=== PATIENT | female | born 1950 | race Caucasian/White ===

== ENCOUNTER 2021-12-19 23:16 | Inpatient (IN) ==
[2021-12-19] MEDS ORDERED: IOPAMIDOL 100 ML BOTTLE IV ONE (23:17)
--- NOTE | 2021-12-19 23:37 | Emergency Department Note ---
HPI General Chief complaint: Urogenital-Female Stated complaint: vaginal discharge Time Seen by Provider: 12/19/21 23:31 Source: patient Mode of arrival: ambulatory Limitations: no limitations History of Present Illness HPI Narrative: Narrative: Patient is a 71-year-old female with a past medical history significant for diverticulitis who presents to the emergency department due to lower abdominal pressure and vaginal discharge. Patient states that she had lower abdominal pressure for a brief period of time a couple of times tonight prior to having vaginal discharge that she states looks a little bit like stool. She states that she was told by the physician when she was admitted earlier this year that she should come to the emergency department if she noticed vaginal discharge that look like stool. She denies any other symptoms at this time. Related Data Home Medications Medication Instructions Recorded Confirmed aspirin 325 mg tablet 325 mg PO QDAY 04/30/17 12/07/21 ferrous sulfate 325 mg (65 mg 325 mg PO DAILY 12/20/21 12/20/21 iron) capsule,extended release Previous Rx's Medication Instructions Recorded loratadine 10 mg tablet 10 mg PO QDAY PRN allergy symptoms 12/11/16 #90 tabs magnesium oxide 400 mg (241.3 mg 400 mg PO QDAY #90 tabs 12/11/16 magnesium) tablet metoprolol tartrate 25 mg tablet 25 mg PO BID #180 tabs 06/02/20 Accu-Chek Kylie Plus test strp #100 ea 01/16/21 (blood sugar diagnostic) pioglitazone 30 mg tablet 30 mg PO QDAY #90 tabs 02/23/21 levothyroxine 50 mcg tablet 50 mcg PO QDAY #90 tabs 03/16/21 metformin 500 mg tablet 500 mg PO BID #180 tabs 06/05/21 atorvastatin 40 mg tablet 40 mg PO QDAY #90 tabs 08/09/21 docusate sodium 100 mg capsule 100 mg PO QDAY #14 caps 11/10/21 tramadol 50 mg tablet 50 mg PO BID PRN pain (scale score 11/10/21 7-10) #30 tabs diltiazem HCl 180 mg 180 mg PO QDAY #90 caps 11/14/21 capsule,extended release 24 hr (Cartia XT) celecoxib 200 mg capsule 200 mg PO QDAY #90 caps 11/22/21 omeprazole 20 mg capsule,delayed 20 mg PO BID 8 weeks #112 caps 12/07/21 release Allergies Allergy/AdvReac Type Severity Reaction Status Date / Time clopidogrel [From Plavix] Allergy Unknown Rash Verified 12/07/21 12:51 naproxen [From Aleve] Allergy Unknown Rash Verified 12/07/21 12:51 Neomycin Allergy Unknown Rash Verified 12/07/21 12:51 polymyxin B Allergy Unknown Unknown Verified 12/07/21 12:51 [From Neosporin ([id number])] lisinopril AdvReac Mild cough Verified 12/07/21 12:51 zoster vaccine live AdvReac Unknown Cannot Verified 12/07/21 12:51 have due to allergy to Neosporin Review of Systems ROS ROS Narrative: Narrative: Constitutional: Denies fever or weakness Eyes: Denies eye pain or vision change ENT ED: Denies throat pain, hearing loss or rhinorrhea Cardiovascular: Denies chest pain or edema Respiratory: Denies shortness of breath or cough Gastrointestinal: Reports abdominal pain; Denies nausea, vomiting, diarrhea, constipation, hematochezia or melena Genitourinary: Reports discharge; Denies dysuria or hematuria Musculoskeletal: Denies back pain or myalgia Integumentary: Denies rash or lesions Neurological: Denies headache, weakness, numbness, confusion, abnormal gait or dizziness Endocrine: Denies fatigue or polyuria Hematological/Lymphatic: Denies easy bleeding or easy bruising PFSH Narrative Patient History Narrative: Narrative: Medical/Surgical/Family History All Active Problems (Updated 12/20/21 @ 02:55 by Fredy Toro MD) Diverticulitis (Acute) Colovaginal fistula (Acute) Appendicitis (Acute) Abscess of groin, left (Acute) Diverticulitis large intestine w/o perforation or abscess w/o bleeding (Acute) Other low back pain (Chronic) Chronic pain (Chronic) Radiculopathy, lumbosacral region (Acute) Neurogenic claudication (Chronic) Lumbar radiculopathy (Chronic) Absence of cervix, acquired (Chronic) 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 non-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 anti-inflammatories (nsaid) (Chronic) Intervertebral disc disorders with radiculopathy, lumbar region (Chronic) Excessive sweating (Chronic) Dry skin (Chronic) Joint pain (Chronic) Arthritis (Chronic) Heartburn (Chronic) Hay fever (Chronic) Numbness of lower extremity (Chronic) Sharp pain (Chronic) Dull pain (Chronic) Aching pain (Chronic) Spinal stenosis (Chronic) Sciatica of left side associated with disorder of lumbar spine (Chronic) Lumbar degenerative disc disease (Chronic) Morbid obesity with BMI of 40.0-44.9, adult (Chronic) Cataracts, bilateral (Chronic) URI (upper respiratory infection) (Chronic) Trigger finger (Chronic) Abscess (Chronic) Medicare annual wellness visit, subsequent (Chronic) Diabetes mellitus type 2 in obese (Chronic) PAF (paroxysmal atrial fibrillation) (Chronic) Change in bowel movement (Chronic) Abdominal pain (Chronic) 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) Metabolic Syndrome X (Chronic) Peripheral Vascular Disease (Chronic) Vaginal polyp (Chronic) Trochanteric bursitis of both hips (Chronic) Closed fracture of toe (Chronic) Sinusitis, acute (Chronic) Premature ventricular contractions (Chronic) Premature atrial contractions (Chronic) Paroxysmal supraventricular tachycardia (Chronic) Palpitations (Chronic) Osteoarthritis (Chronic) Obesity (Chronic) Dysmetabolic syndrome X (Chronic) Low back pain (Chronic) Skin lesion (Chronic) Injury of meniscus of right knee (Chronic) Hypothyroidism (Chronic) Hypertension, essential (Chronic) Hyperlipidemia (Chronic) Hormone replacement therapy (HRT) (Chronic) Shingles (Chronic) Hemorrhoids, internal (Chronic) Gastroesophageal reflux (Chronic) Gastroenteritis, non-infectious (Chronic) Ganglion of joint (Chronic) Dyslipidemia (Chronic) Cystitis (Chronic) Chest pain (Chronic) Cellulitis (Chronic) Carotid bruit (Chronic) Fibromuscular dysplasia (Chronic) Vulvovaginal candidiasis (Chronic) CAD (coronary artery disease) (Chronic) Bronchitis, acute (Chronic) Angina of effort (Chronic) Anemia (Chronic) Atrial fibrillation (Chronic) Medical History Abdominal pain Mild nonlocalizing left-sided abdominal pain. No mass. No rebound. Abscess Absence of cervix, acquired Aching pain Anemia Patient stopped taking iron supplement 6 weeks ago due to constipation, and iron levels remained stable since then Angina of effort Arthritis Atrial fibrillation 04/2011; back to sinus with occasional premature beats (06/2011) Recurrent 02/12/14 - converted Bronchitis, acute CAD (coronary artery disease) (03/08/14-[place]) Carotid bruit Bilateral d/t fibromuscular dysplasia Cataracts, bilateral Cellulitis 09/2011; 07/2010; Right first toe; same Change in bowel movement Resolving Chest pain Chronic pain Closed fracture of toe Cystitis Diabetes mellitus type 2 in obese Diverticulitis of colon 2008 Dry skin Dull pain Dyslipidemia Dysmetabolic syndrome X Encounter for removal of sutures Excessive sweating Fibromuscular dysplasia 07/02/2013; Carotid & vertebral artery fibromuscular dysplasia Most recent CTA showed no change. Continue follow-up with Dr. Carrion with every 2 year CTAs. 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 Tate Lumbar radiculopathy left side Medicare annual wellness visit, subsequent Metabolic Syndrome X Morbid obesity with BMI of 40.0-44.9, adult Neurogenic claudication Numbness of lower extremity Osteoarthritis Other low back pain PAF (paroxysmal atrial fibrillation) Status post ablation in 2014 Palpitations 07/11/2012 Paroxysmal supraventricular tachycardia (04/07/2014-[place]) Peripheral Vascular Disease No claudication. Weakly palpable peripheral pulses bilaterally. Premature atrial contractions (03/08/14-[place]) Premature ventricular contractions (03/08/14-[place]) Sciatica of left side associated with disorder of lumbar spine Improving with 12 sessions of physical therapy, but reexacerbated with simple gardening last week. History of L4-5 discectomy. Physical therapy is recommending further work-up. Continue tramadol as needed for severe pain Alternate ice and heat MR lumbar spine and then consider IPC referral Sharp pain Shingles 10/2013; Left face Sinusitis, acute Skin lesion 2006; 07/2010; premalignant right upper lip lesion, removed; chin lesions Spinal stenosis Squamous cell cancer of scalp and skin of neck Dr. 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 Isbell is seeing this Trigger finger MCPJ Trochanteric bursitis of both hips 06/2005; 05/2006; Left; Right URI (upper respiratory infection) Vaginal polyp 03/18/2012 Vulvovaginal candidiasis recurrent Surgical History History of arthroscopic knee surgery 06/2011; Left. Dr. Bourgeois. Again 04/2015. History of arthroscopic knee surgery 2008; Right meniscus tear History of cholecystectomy History of colonoscopy 07/16/2013; Uncomplicated internal hemorrhoids, Diverticulosis History of discectomy 01/2009; microdiscectomy L4-5 right side, Dr. Tate History of esophagogastroduodenoscopy 06/16/2013 History of hysterectomy History of left knee replacement 03/23; Dr Bourgeois History of tubal ligation 1983 Status post ablation of atrial fibrillation 05/2014 Status post placement of implantable loop recorder 11/28/17 Dr Fontenot Status post GUERDA-BSO 1990 Family History Mother Atrial fibrillation Essential hypertension Hypothyroidism Osteoporosis Osteoarthritis Anemia Cancer Sister , at age 39 Malignant neoplasm of female breast Type 2 diabetes mellitus Essential hypertension Cancer Osteoporosis Brother , at the age of 52 Type 2 diabetes mellitus Non-Hodgkin's lymphoma Father Type 2 diabetes mellitus Father's side Cardiac disease, Onset Age: 77 Acute myocardial infarction Tobacco abuse Rheumatoid arthritis Heart attack Coronary artery disease Chronic pain Social History Smoking Status: Former smoker and Never smoker Alcohol Intake Frequency: does not drink Substance Use: does not use Exam Narrative Narrative: Narrative: General Limitations: no limitations General appearance: Present alert and in no apparent distress; Absent anxious, appears intoxicated or sleepy Head Head: Present atraumatic and normocephalic Eye Eye: Present EOMI; Absent scleral icterus ENT ENT: Present mucous membranes moist; Absent nasal congestion Neck Neck: Present full ROM; Absent tenderness Chest Chest: Present normal inspection and symmetric chest wall rise Respiratory Respiratory: Present normal lung sounds bilaterally; Absent respiratory distress or accessory muscle use Cardiovascular Cardiovascular: Present regular rate, normal rhythm and normal heart sounds Adbominal Abdominal: Present soft, tenderness and normal bowel sounds; Absent distention Speculum: Present vaginal discharge; Absent vaginal bleeding Extremities Extremities: Present normal inspection and full ROM Back Back: Present normal inspection and full ROM Neurological Neurological: Present alert and oriented X3 Psychiatric Psychiatric: Present normal affect and normal mood Skin Skin: Present warm (WNL), dry and normal color Course Vital Signs Vital signs: Vital Signs Temperature 97.9 F 12/19/21 23:17 Pulse Rate 91 H 12/19/21 23:17 Respiratory Rate 17 12/19/21 23:17 Blood Pressure 139/66 12/19/21 23:17 Pulse Oximetry (%) 97 12/19/21 23:17 Oxygen Delivery Method 12/19/21 23:17 Temperature 97.9 F 12/19/21 23:17 Pulse Rate 85 12/20/21 02:31 Respiratory Rate 17 12/19/21 23:17 Blood Pressure 123/59 12/20/21 02:31 Pulse Oximetry (%) 92 12/20/21 02:31 Oxygen Delivery Method 12/19/21 23:17 MDM MDM Narrative Medical decision making narrative: Narrative: Patient is a 71-year-old female who presents to the emergency department due to abdominal pain and abnormal vaginal discharge. Given description of discharge and history of diverticulitis it is possible the patient has a fistula due to chronic inflammation. Abdominal pain differential includes diverticulitis, appe ndicitis, colitis, enteritis, and urinary tract infection. Patient's pelvic exam does not demonstrate discharge the patient described, but she does have a clear yellow/brown discharge. CT scan demonstrates abnormal process involving the sigmoid, appendix, and vaginal cuff. Patient has findings concerning for sigmoidal diverticulitis with colovaginal fistula and involvement of appendiceal tip compatible with appendicitis. I have spoken to Dr. Ceballos who requests admission. Lab Data Result diagrams: 12/19/21 23:38 Labs: Lab Results 12/19/21 12/19/21 12/20/21 Range/Units 23:38 23:49 00:20 WBC 10.6 (4.5-11.0) K/mcL RBC 4.33 (3.59-5.38) M/mcL Hgb 11.6 (11.2-15.7) g/dL Hct 36.2 (34.1-44.9) % POC Hct 34.0 L (36-48) MCV 83.6 (80.0-100.0) fL MCH 26.8 (26.0-34.0) pg MCHC 32.0 (31.0-36.0) g/dL RDW 14.3 (11.5-14.5) % Plt Count 280 (140-440) K/mcL MPV 8.8 (8.8-12.5) fL Immature Gran % (Auto) 0.8 H (0.0-0.5) % Neut % (Auto) 64.5 (38.0-78.0) % Lymph % (Auto) 24.3 (15.5-49.0) % [place] % (Auto) 7.4 (1.0-12.0) % Eos % (Auto) 2.3 (0.0-7.0) % Baso % (Auto) 0.7 (0.0-2.0) % Lymph # (Auto) 2.57 (1.50-4.80) K/mcL [place] # (Auto) 0.78 (0.10-0.90) K/mcL Eos # (Auto) 0.24 (0.00-0.70) K/mcL Baso # (Auto) 0.07 (0.00-0.30) K/mcL Immature Gran # 0.08 H (0.00-0.05) K/mcl Absolute Neutrophils 6.85 (1.80-8.00) K/mcL POC Sodium 138 (133-145) POC Potassium 3.8 (3.3-5.1) POC Chloride 104 (96-108) POC Total CO2 25.0 (22-30) POC BUN 14 (6-20) POC Creatinine 0.6 (0.6-1.2) POC Glucose 131 H (70-105) POC WB Ioniz Calcium 0.96 L (1.16-1.32) Urine Color Straw Urine Appearance Hazy A (Clear) Urine pH 6.0 (5.0-9.0) Ur Specific [place] 1.002 (1.000-1.035) Urine Protein Negative (Negative) mg/dL Urine Glucose (UA) Negative (Negative) mg/dL Urine Ketones Negative (Negative) mg/dL Urine Occult Blood >=1.0 A (Negative) mg/dL Urine Nitrate Negative (Negative) Urine Bilirubin Negative (Negative) mg/dL Urine Urobilinogen Negative mg/dL Ur Leukocyte Esterase 500 A (Negative) /uL Urine RBC 2 (0-3) /hpf Urine WBC > 182 H (0-4) /hpf Ur Squamous Epith Cells < 1 (0-4) /hpf Uric Acid Crystals Mod A (None) /hpf Urine Bacteria None (0) /hpf Ur Culture Indicated? yes Discharge Plan Patient/Caregiver Discharge Instructions Pt seen by PATTERN CHART WRITER/PA only: No Clinical Impression: Diverticulitis, Colovaginal fistula, Appendicitis Patient Disposition: Xfer As Inpt ([facility]) Follow up with: Angel Trejo DO [Primary Care Provider] - Prescriptions: No Action loratadine 10 mg tablet 10 mg PO QDAY PRN (Reason: allergy symptoms) Qty: 90 3RF magnesium oxide 400 mg tablet 400 mg PO QDAY Qty: 90 3RF metoprolol tartrate 25 mg tablet 25 mg PO BID Qty: 180 3RF (DME) Accu-Chek Kylie Plus test strp Strip See Dose Instructions .ROUTE .MEDSUPPLY Qty: 100 3RF Dose Instruction: As directed Rx Instructions: testing blood glucose once daily pioglitazone 30 mg tablet 30 mg PO QDAY Qty: 90 3RF levothyroxine 50 mcg tablet 50 mcg PO QDAY Qty: 90 3RF metformin 500 mg tablet 500 mg PO BID Qty: 180 3RF atorvastatin 40 mg tablet 40 mg PO QDAY Qty: 90 3RF diltiazem HCl [Cartia XT] 180 mg capsule,extended release 24hr 180 mg PO QDAY Qty: 90 3RF celecoxib 200 mg capsule 200 mg PO QDAY Qty: 90 3RF aspirin 325 mg tablet 325 mg PO QDAY polyethylene glycol 3350 [Miralax] 17 gram/dose powder 17 g PO QDAY dulaglutide [Trulicity] 0.75 mg/0.5 mL pen injector 0RF omeprazole 20 mg capsule,delayed release(DR/EC) 20 mg PO BID 56 Days Qty: 112 0RF docusate sodium 100 mg capsule 100 mg PO QDAY Qty: 14 0RF tramadol 50 mg tablet 50 mg PO BID PRN (Reason: pain (scale score 7-10)) Qty: 30 0RF
[2021-12-19 23:53] LABS: POC Calcium, Ionized 0.96 (1.16-1.32); POC Creatinine 0.6 (0.6-1.2); POC Potassium 3.8 (3.3-5.1)
[2021-12-20 00:04] LABS: Basophils # (Auto) 0.07 K/mcL (0.00-0.30); Basophils % (Auto) 0.7 % (0.0-2.0); Eosinophils # (Auto) 0.24 K/mcL (0.00-0.70); Eosinophils % (Auto) 2.3 % (0.0-7.0); Hematocrit 36.2 % (34.1-44.9); Hemoglobin 11.6 g/dL (11.2-15.7); Lymphocytes # (Auto) 2.57 K/mcL (1.50-4.80); Lymphocytes % (Auto) 24.3 % (15.5-49.0); Mean Cell Volume 83.6 fL (80.0-100.0); Mean Platelet Volume 8.8 fL (8.8-12.5); Monocytes # (Auto) 0.78 K/mcL (0.10-0.90); Monocytes % (Auto) 7.4 % (1.0-12.0); Neutrophils % (Auto) 64.5 % (38.0-78.0); Platelet Count 280 K/mcL (140-440); RBC 4.33 M/mcL (3.59-5.38); Red Cell Distribution Width 14.3 % (11.5-14.5); WBC 10.6 K/mcL (4.5-11.0)
[2021-12-20 00:55] LABS: Appearance,Urine HAZY (Clear); Bilirubin,Urine Negative (Negative); Color,Urine STRAW; Culture Indicated,Urine yes; Glucose,Urine (UA) Negative (Negative); Ketones,Urine Negative (Negative); Leukocyte Esterase,Urine 500 /uL (Negative); Nitrate,Urine Negative (Negative); Protein,Urine Negative (Negative); Specific Gravity,Urine 1.002 (1.000-1.035); Uric Acid Crystals,Urine MOD /hpf; Urine Blood >=1.0 mg/dL (Negative); Urine RBC 2 /hpf (0-3); Urine Squamous Epithelial Cell < 1 /hpf (0-4); Urine WBC > 182 /hpf (0-4); Urobilinogen,Urine Negative
[2021-12-20] MEDS ORDERED: PIPERACILLIN SODIUM/TAZOBACTAM 4.5 GM in DEXTROSE 5% IN WATER 50 ML IV ONE (02:46)
[2021-12-20] MEDS ORDERED: morphine 2 MG/ML VIAL IV PRN (02:46)
[2021-12-20] MEDS ORDERED: metroNIDAZOLE 500 MG/100 ML BAG IV ONE (02:46)
--- NOTE | 2021-12-20 05:34 | Cat Scan Report ---
INDICATION: RLQ tenderness, stool-like vaginal discharge history of diverticulitis COMPARISON: Previous examinations dated 11/08/2021, 01/01/2021 TECHNIQUE: Axial images were obtained through the abdomen and pelvis. Sagittally and coronally reformatted images. 80 mL Isovue 370 injected intravenously. Oral contrast material was given FINDINGS: Examination was initially interpreted by [facility] Lung bases:Negative. No pulmonary parenchymal nodule. No pleural fluid or pericardial fluid Liver: Findings consistent with hepatic steatosis. No focal intrahepatic mass. No focal abnormality. Liver contour is smooth. No evidence for cirrhosis Gallbladder, bilary:Previous cholecystectomy. No dilated bile ducts Spleen:No splenomegaly. Normal enhancement of splenic and portal veins. Pancreas:No pancreatic mass. No peripancreatic abnormality Adrenal glands:Negative Kidneys,ureters,bladder:No solid renal mass. No hydronephrosis. No obstructing or nonobstructing calculi. No hydroureter. No ureteral calculus. There is no intravesical gas. No bladder wall thickening Gastrointestinal: No detectable colonic mass. History of chronic sigmoid diverticulosis and diverticulitis. Extensive sigmoid diverticulosis with diffuse wall thickening. There is mild pericolonic inflammatory change consistent with chronic diverticulitis. This patient has a history of cecal vaginal discharge. On sagittal image #81 there is contiguity and possible continuity between the sigmoid colon and vaginal vault. There is no clear separation. There is gas within the vaginal vault. Scan was performed before contrast opacification of the colon. Appearance is consistent with colovaginal fistula. Repeat pelvic CT scan after rectal administration of contrast material may be helpful to document this fistula. Negative small bowel. No mechanical small bowel obstruction. No bowel wall thickening. No focal abnormality. Negative stomach and duodenum. No focal abnormality. Appendix: The appendix is as described in previous dictations the appendix has a relatively low point of origin and extends to the pelvis and is adjacent to the sigmoid colon. The appendix measures approximately 10 mm in thickness. Findings are consistent with chronic appendicitis and possible fistulization with the sigmoid colon . Vascular: Calcification of the abdominal aorta without abdominal aortic aneurysm. Superior mesenteric artery and celiac trunk are normal. Normal opacification of the inferior mesenteric artery. There is calcification at the origin of the renal arteries and possible stenosis Lymphatic:No retroperitoneal or mesenteric adenopathy Mesentery, peritoneum: No free intraperitoneal fluid. No mesenteric or retroperitoneal mass. No intra-abdominal abscess. Reproductive:Previous hysterectomy. There is gas in the vaginal vault as described above. Findings are suggestive of sigmoid colovaginal fistula Musculoskeletal:No lumbar compression fractures. Sacrum and pelvis are negative. No hip fracture. There is multilevel degenerative disc disease No abdominal wall or inguinal hernia IMPRESSION: 1. Chronic sigmoid diverticulitis. Findings are consistent with but not diagnostic of colovaginal fistula as above 2. Enlarged appendix is not clearly separable from the sigmoid colon. Chronic appendicitis and possible appendiceal colonic fistula 3. Hepatic steatosis 4. Previous cholecystectomy. Previous hysterectomy and oophorectomy The exam was performed using radiation dose optimization techniques including, but not limited to, automated exposure control, adjustment of the mA and/or kV according to patient size and use of iterative reconstruction technique. Interpreted and Authenticated by: Angel Bojorquez 12/20/21
--- NOTE | 2021-12-20 12:30 | General Surg History&Physical ---
HPI History of Present Illness Patient information: Note initiated : 12/20/21 at 12:12 pm Service Date, if different from initiated Date: [] Patient: Madeline Bocanegra 71 y/o F admitted on 12/20/21 for vaginal discharge. Chief Complaint: [] Chief complaint: Left lower quadrant and hypogastric pain with vaginal discharge History of present illness: Ms. Bocanegra is a 71 year old F admitted via the emergency room with complaint ac [place] onset of abdominal pain in the lower abdomen. She had a pressure-like sensation on the pain resolved after the discharge during she has had mild discomfort with nausea for about 2 weeks prior to acute. Episode. She on 08 November with acute diverticulitis with some inflammation of the appendix. area was told in December 2020 That she had diverticulitis at that time she has a prior episode several years before that. Patient states that her discomfort is improved and she has less pain. She still has a bloody milky discharge and some feculent looking drainage from her vagina. CT suggest diverticulitis with colovaginal fistula. She is not toxic at this time. EENT Eyes: Absent seeing flashes Ears: Absent decreased hearing or tinnitus Nose, mouth and throat: Present sinus pressure and sore throat; Absent abnormal hearing or disequilibrium Cardiovascular Cardiovascular: Present chest pain; Absent chest pain with activity, dyspnea on exertion, lightheadedness, palpatations, paroxysmal nocturnal dyspnea or pedal edema Respiratory Respiratory: Present cough; Absent dyspnea, dyspnea on exertion or wheezing Gastrointestinal Gastrointestinal: Present abdominal pain, change in bowel habits, change in stool character, constipation, cramping and fecal incontinence; Absent nausea or vomiting Genitourinary Genitourinary: Present pelvic pain, urinary incontinence and vaginal ordor; Absent urinary frequency, urinary hesitancy or urinary urgency Musculoskeletal Musculoskeletal: Absent abnormal gait, arthralgias, deformity, myalgias or numbness Integumentary Integumentary: Absent pruritus Neurological Neurological: Absent abnormal gait, behavioral changes, dizziness, headache(s), memory loss, syncope or tremor(s) Psychiatric Psychiatric: Absent anxiety, behavioral changes or confusion Hematologic/Lymphatic Hematologic/Lymphatic: Absent easy bleeding, easy bruising or lymphadenopathy Allergic/Immunologic Allergic/Immunologic: Present GI upset with certain foods; Absent throat s welling, wheezing or lip swelling PFSH PFSH All Active Problems (Updated 12/20/21 @ 12:26 by Toi Ceballos MD) Acute diverticulitis of intestine (Acute) Diverticulitis (Acute) Colovaginal fistula (Acute) Appendicitis (Acute) Abscess of groin, left (Acute) Diverticulitis large intestine w/o perforation or abscess w/o bleeding (Acute) Other low back pain (Chronic) Chronic pain (Chronic) Radiculopathy, lumbosacral region (Acute) Neurogenic claudication (Chronic) Lumbar radiculopathy (Chronic) Absence of cervix, acquired (Chronic) care home (current) use of aspirin (Chronic) 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 non-steroidal anti-inflammatories (nsaid) (Chronic) Intervertebral disc disorders with radiculopathy, lumbar region (Chronic) Excessive sweating (Chronic) Dry skin (Chronic) Joint pain (Chronic) Arthritis (Chronic) Heartburn (Chronic) Hay fever (Chronic) Numbness of lower extremity (Chronic) Sharp pain (Chronic) Dull pain (Chronic) Aching pain (Chronic) Spinal stenosis (Chronic) Sciatica of left side associated with disorder of lumbar spine (Chronic) Lumbar degenerative disc disease (Chronic) Morbid obesity with BMI of 40.0-44.9, adult (Chronic) Cataracts, bilateral (Chronic) URI (upper respiratory infection) (Chronic) Trigger finger (Chronic) Abscess (Chronic) Medicare annual wellness visit, subsequent (Chronic) Diabetes mellitus type 2 in obese (Chronic) PAF (paroxysmal atrial fibrillation) (Chronic) Change in bowel movement (Chronic) Abdominal pain (Chronic) 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) Metabolic Syndrome X (Chronic) Peripheral Vascular Disease (Chronic) Vaginal polyp (Chronic) Trochanteric bursitis of both hips (Chronic) Closed fracture of toe (Chronic) Sinusitis, acute (Chronic) Premature ventricular contractions (Chronic) Premature atrial contractions (Chronic) Paroxysmal supraventricular tachycardia (Chronic) Palpitations (Chronic) Osteoarthritis (Chronic) Obesity (Chronic) Dysmetabolic syndrome X (Chronic) Low back pain (Chronic) Skin lesion (Chronic) Injury of meniscus of right knee (Chronic) Hypothyroidism (Chronic) Hypertension, essential (Chronic) Hyperlipidemia (Chronic) Hormone replacement therapy (HRT) (Chronic) Shingles (Chronic) Hemorrhoids, internal (Chronic) Gastroesophageal reflux (Chronic) Gastroenteritis, non-infectious (Chronic) Ganglion of joint (Chronic) Dyslipidemia (Chronic) Cystitis (Chronic) Chest pain (Chronic) Cellulitis (Chronic) Carotid bruit (Chronic) Fibromuscular dysplasia (Chronic) Vulvovaginal candidiasis (Chronic) CAD (coronary artery disease) (Chronic) Bronchitis, acute (Chronic) Angina of effort (Chronic) Anemia (Chronic) Atrial fibrillation (Chronic) Medical History Abdominal pain Mild nonlocalizing left-sided abdominal pain. No mass. No rebound. Abscess Absence of cervix, acquired Aching pain Anemia Patient stopped taking iron supplement 6 weeks ago due to constipation, and iron levels remained stable since then Angina of effort Arthritis Atrial fibrillation 04/2011; back to sinus with occasional premature beats (06/2011) Recurrent 02/12/14 - converted Bronchitis, acute CAD (coronary artery disease) (03/08/14-[place]) Carotid bruit Bilateral d/t fibromuscular dysplasia Cataracts, bilateral Cellulitis 09/2011; 07/2010; Right first toe; same Change in bowel movement Resolving Chest pain Chronic pain Closed fracture of toe Cystitis Diabetes mellitus type 2 in obese Diverticulitis of colon 2008 Dry skin Dull pain Dyslipidemia Dysmetabolic syndrome X Encounter for removal of sutures Excessive sweating Fibromuscular dysplasia 07/02/2013; Carotid & vertebral artery fibromuscular dysplasia Most recent CTA showed no change. Continue follow-up with Dr. Carrion with every 2 year CTAs. 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 Tate Lumbar radiculopathy left side Medicare annual wellness visit, subsequent Metabolic Syndrome X Morbid obesity with BMI of 40.0-44.9, adult Neurogenic claudication Numbness of lower extremity Osteoarthritis Other low back pain PAF (paroxysmal atrial fibrillation) Status post ablation in 2014 Palpitations 07/11/2012 Paroxysmal supraventricular tachycardia (04/07/2014-[place]) Peripheral Vascular Disease No claudication. Weakly palpable peripheral pulses bilaterally. Premature atrial contractions (03/08/14-[place]) Premature ventricular contractions (03/08/14-[place]) Sciatica of left side associated with disorder of lumbar spine Improving with 12 sessions of physical therapy, but reexacerbated with simple gardening last week. History of L4-5 discectomy. Physical therapy is recommending further work-up. Continue tramadol as needed for severe pain Alternate ice and heat MR lumbar spine and then consider IPC referral Sharp pain Shingles 10/2013; Left face Sinusitis, acute Skin lesion 2006; 07/2010; premalignant right upper lip lesion, removed; chin lesions Spinal stenosis Squamous cell cancer of scalp and skin of neck Dr. 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 Isbell is seeing this Trigger finger MCPJ Trochanteric bursitis of both hips 06/2005; 05/2006; Left; Right URI (upper respiratory infection) Vaginal polyp 03/18/2012 Vulvovaginal candidiasis recurrent Surgical History History of arthroscopic knee surgery 06/2011; Left. Dr. Bourgeois. Again 04/2015. History of arthroscopic knee surgery 2008; Right meniscus tear History of cholecystectomy History of colonoscopy 07/16/2013; Uncomplicated internal hemorrhoids, Diverticulosis History of discectomy 01/2009; microdiscectomy L4-5 right side, Dr. Tate History of esophagogastroduodenoscopy 06/16/2013 History of hysterectomy History of left knee replacement 03/23; Dr Bourgeois History of tubal ligation 1984 Status post ablation of atrial fibrillation 05/2014 Status post placement of implantable loop recorder 11/28/17 Dr Fontenot Status post [facility] 1990 Family History Mother Atrial fibrillation Essential hypertension Hypothyroidism Osteoporosis Osteoarthritis Anemia Cancer Sister , at age 39 Malignant neoplasm of female breast Type 2 diabetes mellitus Essential hypertension Cancer Osteoporosis Brother , at the age of 52 Type 2 diabetes mellitus Non-Hodgkin's lymphoma Father Type 2 diabetes mellitus Father's side Cardiac disease, Onset Age: 77 Acute myocardial infarction Tobacco abuse Rheumatoid arthritis Heart attack Coronary artery disease Chronic pain Social History household members: spouse housing: house lives independently: Yes marital status: education level: vocational occupational status: retired smoking status: Former smoker quit date: 03/11/84 pack-years: 12 alcohol intake frequency: does not drink substance use type: does not use MEDS/ALLERGIES Home Medications and Allergies Home Medications Medication Instructions Recorded Confirmed Type loratadine 10 mg tablet 10 mg PO QDAY PRN allergy symptoms 12/11/16 12/20/21 Rx #90 tabs magnesium oxide 400 mg (241.3 mg 400 mg PO QDAY #90 tabs 12/11/16 12/20/21 Rx magnesium) tablet aspirin 325 mg tablet 325 mg PO QDAY 04/30/17 12/20/21 History metoprolol tartrate 25 mg tablet 25 mg PO BID #180 tabs 06/02/20 12/20/21 Rx Accu-Chek Kylie Plus test strp #100 ea 01/16/21 12/20/21 Rx (blood sugar diagnostic) pioglitazone 30 mg tablet 30 mg PO QDAY #90 tabs 02/23/21 12/20/21 Rx levothyroxine 50 mcg tablet 50 mcg PO QDAY #90 tabs 03/16/21 12/20/21 Rx metformin 500 mg tablet 500 mg PO BID #180 tabs 06/05/21 12/20/21 Rx atorvastatin 40 mg tablet 40 mg PO QDAY #90 tabs 08/09/21 12/20/21 Rx tramadol 50 mg tablet 50 mg PO BID PRN pain (scale score 11/10/21 12/20/21 Rx 7-10) #30 tabs diltiazem HCl 180 mg 180 mg PO QDAY #90 caps 11/14/21 12/20/21 Rx capsule,extended release 24 hr (Cartia XT) celecoxib 200 mg capsule 200 mg PO QDAY #90 caps 11/22/21 12/20/21 Rx Adults Multivitamin 1 tab PO DAILY 12/20/21 12/20/21 History PreserVision AREDS-2 2 cap PO DAILY 12/20/21 12/20/21 History docusate sodium 100 mg capsule 100 mg PO BID 12/20/21 12/20/21 History dulaglutide 1.5 mg/0.5 mL 1.5 mg subcut WEEKLY 12/20/21 12/20/21 History subcutaneous pen injector (Trulicity) flaxseed oil 1,000 mg capsule 1,000 mg PO QDAY 12/20/21 12/20/21 History omega-3 fatty acids-fish oil 435 1,360 cap PO DAILY 12/20/21 12/20/21 History mg-880 mg capsule (Fish Oil Extra Strength) omeprazole 20 mg capsule,delayed 20 mg PO DAILY 12/20/21 12/20/21 History release polyethylene glycol 3350 17 gram 17 g PO DAILY PRN Constipation 12/20/21 12/20/21 History oral powder packet (Miralax) Allergies Allergy/AdvReac Type Severity Reaction Status Date / Time clopidogrel [From Plavix] Allergy Unknown Rash Verified 12/20/21 03:48 naproxen [From Aleve] Allergy Unknown Rash Verified 12/20/21 03:48 Neomycin Allergy Unknown Rash Verified 12/20/21 03:48 polymyxin B Allergy Unknown Unknown Verified 12/20/21 03:48 [From Neosporin ([id number])] lisinopril AdvReac Mild cough Verified 12/20/21 03:48 zoster vaccine live AdvReac Unknown Cannot Verified 12/20/21 03:48 have due to allergy to Neosporin Physical Examination Vital Signs Vital signs: Temp Pulse Resp BP Pulse Ox O2 Del Method 97.8 F 97 H 20 125/62 95 12/20/21 08:00 12/20/21 08:00 12/20/21 08:00 12/20/21 08:00 12/20/21 08:00 12/20/21 08:00 General physical appearance General physical exam: well developed, well nourished, no distress, no pain and obese Eyes Eye exam: PERRL and normal ocular movement ENT ENT exam: normal pinna, normal mucosa, no hearing loss and no congestion Head Head exam IM: Present atraumatic, normal inspection and normocephalic Neck Neck exam: no masses, no bruits, trachea midline, no lymphadenopathy and no venous distension Cardiovascular Cardiovascular exam IM: Present normal rate and rhythm, +S1 and +S2; Absent diastolic murmur, gallop or JVD Respiratory Respiratory exam: normal expansion, normal respiratory effort and clear to auscultation Abdomen Abdomen: Present tender (Mild tenderness left lower quadrant and suprapubic region;) Hernia: Absent none Integumentary Integumentary: Present no rash, no growths and no abnormal pigmentation Neurologic Neurologic: Present normal coordination and normal sensation Musculoskeletal Musculoskeletal: Present normal gait and normal posture Psychiatric Psychiatric: Present oriented to time, oriented to place, speech is normal and memory intact Results Labs Result diagrams: 12/19/21 23:38 Labs: Abnormal lab results 12/19/21 12/19/21 12/20/21 Range/Units 23:38 23:49 00:20 POC Hct 34.0 L (36-48) Immature Gran % (Auto) 0.8 H (0.0-0.5) % Immature Gran # 0.08 H (0.00-0.05) K/mcl POC Glucose 131 H (70-105) POC WB Ioniz Calcium 0.96 L (1.16-1.32) Urine Appearance Hazy A (Clear) Urine Occult Blood >=1.0 A (Negative) mg/dL Ur Leukocyte Esterase 500 A (Negative) /uL Urine WBC > 182 H (0-4) /hpf Uric Acid Crystals Mod A (None) /hpf All other labs normal. A/P Assessment and plan (1) Acute diverticulitis of intestine: Status: Acute (2) Colovaginal fistula: Status: Acute (3) Appendicitis: Status: Acute (4) Diabetes mellitus type 2 in obese: Status: Chronic (5) PAF (paroxysmal atrial fibrillation): Status: Chronic Comment: Status post ablation in 2014 (6) Hypertension, essential: Status: Chronic Comment: Well-controlled on diltiazem 180 mg daily, metoprolol tartrate 25 mg twice daily Low-sodium diet recommended Plan Zosyn every [address] of abdomen and pelvis with IV contrast in 4 days Full liquid diet with dietary supplements Cath UA for evaluation CBC, erythrocyte sedimentation rate, CRP Pantoprazole 40 mg twice daily EKG for baseline evaluation Echocardiogram for baseline preop evaluation We will schedule operative therapy once the infection is under better control. If she does not respond in 5 days then we will proceed with Conley's procedure with colostomy with delayed colostomy takedown. Sepsis Sepsis Identified: No Time Spent With Patient Time: Total time spent is greater than 50% in coordination of care (as documented) at patient's floor/unit and/or counseling patient:
[2021-12-20] MEDS ORDERED: DEXTROSE 50% 50 ML VIAL IV PRN (13:32)
[2021-12-20] MEDS ORDERED: DEXTROSE 31 GM ORAL.SUSP PO PRN (13:32)
[2021-12-20] MEDS: PIPERACILLIN SODIUM/TAZOBACTAM 3.375 GM in DEXTROSE 5% IN WATER 50 ML IV SCH ×2 (13:51→17:44)
[2021-12-20] MEDS: traMADol 50 MG TABLET PO PRN (15:40)
[2021-12-20] MEDS: PANTOPRAZOLE 40 MG TABLET PO SCH (16:47)
[2021-12-20] MEDS: INSULIN LISPRO 1 UNIT/0.01 ML UNIT SQ SCH (16:48)
[2021-12-20] MEDS: METOPROLOL TARTRATE 25 MG TABLET PO SCH (20:51)
[2021-12-21] MEDS: PIPERACILLIN SODIUM/TAZOBACTAM 3.375 GM in DEXTROSE 5% IN WATER 50 ML IV SCH ×5 (00:32→23:23)
[2021-12-21] MEDS: INSULIN LISPRO 1 UNIT/0.01 ML UNIT SQ SCH ×5 (00:47→23:27)
[2021-12-21] MEDS: PANTOPRAZOLE 40 MG TABLET PO SCH ×2 (07:18→17:42)
--- NOTE | 2021-12-21 07:39 | EKG ---
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
[2021-12-21] MEDS: METOPROLOL TARTRATE 25 MG TABLET PO SCH ×2 (09:02→21:20)
[2021-12-21] MEDS: DILTIAZEM 180 MG CAP.XL.24H PO SCH (09:02)
[2021-12-21] MEDS: LEVOTHYROXINE 50 MCG TABLET PO SCH (09:02)
[2021-12-21] MEDS: MAGNESIUM OXIDE 400 MG TABLET PO SCH (09:02)
--- NOTE | 2021-12-21 18:30 | General Surgery Progress Note ---
SUBJECTIVE Subjective Patient information: Note initiated : 12/21/21 at 6:27 pm Service Date, if different from initiated Date: [] Patient: Madeline Bocanegra 71 y/o F admitted on 12/20/21 for vaginal discharge. Chief Complaint: [] Interval history: Patient is improved. She has less left lower quadrant and hypogastric pain. She denies having any nausea. She had a small bowel movement today and did not notice any. She has had a very small amount of drainage from her vagina. Constitutional Vitals: Vital Signs Temp Pulse Resp BP Pulse Ox O2 Del Method 97.8 F 84 17 127/67 96 12/21/21 15:59 12/21/21 15:59 12/21/21 15:59 12/21/21 15:59 12/21/21 15:59 12/21/21 15:59 Period Temp Pulse Resp BP Sys/Crews Pulse Ox O2 Del Method O2 Flow Rate Last 24 Hr 96.8 F-98.2 F 83-90 16-17 113-140/52-70 94-97 Room Air-Room Air Intake and Output 12/21/21 12/21/21 12/21/21 05:59 13:59 21:59 Intake Total 450 526 850 Output Total 1250 1350 675 Balance -800 -824 175 Weight 239 lb 11.2 oz Patient Weight 12/22/21 05:59 Weight 239 lb 11.2 oz Intake & Output: Intake & Output 12/21/21 12/21/21 12/21/21 05:59 13:59 21:59 Intake Total 450 526 850 Output Total 1250 1350 675 Balance -800 -824 175 Weight 239 lb 11.2 oz Intake: Nourishment/Supplement quantity 356 (ml) IV 50 50 50 Zosyn 3.375 gm In Dextrose 5% 50 50 50 in Water 50 ml @ 100 mls/hr IV Q6H [facility] Rx#:[id number] Oral 400 120 800 Output: Void Amount 1250 1350 675 Other: Meal Breakfast Percent of Meal Consumed 100% Feeding Ability Independent Nourishment/Supplement name Magic cup Urine Appearance Cloudy Clear Clear Urine Color Yellow Yellow Yellow Urine Odor Normal Normal Respiratory Respiratory exam: Present normal respiratory exam and CTAB Cardiovascular Cardiovascular exam: Present normal rate and rhythm, RRR, +S1 and +S2; Absent JVD GI/Abdominal GI/Abdominal exam: Present normal bowel sounds and soft; Absent distended or tenderness Extremities Exam Extremities exam: Present normal capillary refill and neurovascular intact Neurological Exam Neurological exam: Present alert, oriented X3 and reflexes normal; Absent motor sensory deficit Psychiatric Psychiatric exam: Present normal affect and normal mood; Absent depressed A/P Assessment and plan (1) Acute diverticulitis of intestine: Status: Acute (2) Colovaginal fistula: Status: Acute (3) Appendicitis: Status: Acute Plan Continue present therapy Plan: Follow-up CT in 2 to 3 days Sepsis Sepsis Identified: No Time Spent With Patient Time: Total time spent is greater than 50% in coordination of care (as documented) at patient's floor/unit and/or counseling patient:
[2021-12-21] MEDS: traMADol 50 MG TABLET PO PRN (18:53)
[2021-12-22] MEDS: PIPERACILLIN SODIUM/TAZOBACTAM 3.375 GM in DEXTROSE 5% IN WATER 50 ML IV SCH ×4 (05:38→23:23)
[2021-12-22] MEDS: INSULIN LISPRO 1 UNIT/0.01 ML UNIT SQ SCH ×3 (05:44→17:09)
[2021-12-22] MEDS: PANTOPRAZOLE 40 MG TABLET PO SCH ×2 (07:58→17:05)
[2021-12-22] MEDS: MAGNESIUM OXIDE 400 MG TABLET PO SCH (08:44)
[2021-12-22] MEDS: METOPROLOL TARTRATE 25 MG TABLET PO SCH ×2 (08:45→21:04)
[2021-12-22] MEDS: LEVOTHYROXINE 50 MCG TABLET PO SCH (08:45)
[2021-12-22] MEDS: DILTIAZEM 180 MG CAP.XL.24H PO SCH (08:45)
--- NOTE | 2021-12-22 11:43 | General Surgery Progress Note ---
SUBJECTIVE Subjective Patient information: Note initiated : 12/22/21 at 11:40 am Service Date, if different from initiated Date: [] Patient: Madeline Bocanegra 71 y/o F admitted on 12/20/21 for vaginal discharge. Chief Complaint: [] Interval history: patient continues to improve. She has much less pain. She is having regular bowel movements. She does have more feculent drainage through her vagina. Constitutional Vitals: Vital Signs Temp Pulse Resp BP Pulse Ox O2 Del Method 97.6 F 77 20 118/61 93 12/22/21 07:49 12/22/21 07:49 12/22/21 07:49 12/22/21 07:49 12/22/21 07:49 12/22/21 07:49 Period Temp Pulse Resp BP Sys/Crews Pulse Ox O2 Del Method O2 Flow Rate Last 24 Hr 97.4 F-98.0 F 77-90 16-20 118-137/53-69 93-97 Room Air-Room Air Intake and Output 12/21/21 12/22/21 12/22/21 21:59 05:59 13:59 Intake Total 1380 250 286 Output Total 675 2200 350 Balance 705 -1950 -64 Weight 239 lb Intake & Output: Intake & Output 12/21/21 12/22/21 12/22/21 21:59 05:59 13:59 Intake Total 1380 250 286 Output Total 675 2200 350 Balance 705 -1950 -64 Weight 239 lb Intake: Nourishment/Supplement quantity 236 (ml) IV 100 50 50 Zosyn 3.375 gm In Dextrose 5% 100 50 50 in Water 50 ml @ 100 mls/hr IV Q6H [facility] Rx#:[id number] Oral 1280 200 Output: Void Amount 675 2200 350 Other: Meal Dinner Breakfast Percent of Meal Consumed 100 100% Feeding Ability Independent Nourishment/Supplement name Ensure Enlive Urine Appearance Clear Cloudy Clear Urine Color Yellow Bright Yellow Yellow Urine Odor Normal Normal Stool Size Smear # Bowel Movements 1 Neck Neck exam: Present full ROM and normal inspection; Absent tenderness Respiratory Respiratory exam: Present normal respiratory exam and CTAB Cardiovascular Cardiovascular exam: Present normal rate and rhythm, RRR, +S1 and +S2; Absent JVD GI/Abdominal GI/Abdominal exam: Present normal bowel sounds; Absent distended or tenderness Extremities Exam Extremities exam: Present neurovascular intact Neurological Exam Neurological exam: Present normal gait, oriented X3 and reflexes normal; Absent motor sensory deficit Psychiatric Psychiatric exam: Present normal affect and normal mood A/P Assessment and plan (1) Acute diverticulitis of intestine: Status: Acute (2) Colovaginal fistula: Status: Acute (3) Appendicitis: Status: Acute (4) Diabetes mellitus type 2 in obese: Status: Chronic (5) Hypertension, essential: Status: Chronic Comment: Well-controlled on diltiazem 180 mg daily, metoprolol tartrate 25 mg twice daily Low-sodium diet recommended Plan Patient will have follow-up CT in the morning and if she has improvement in her infection she will probably be able to be discharged home with 2 weeks of antibiotics and follow-up as an outpatient. Time Spent With Patient Time: Total time spent is greater than 50% in coordination of care (as documented) at patient's floor/unit and/or counseling patient:
[2021-12-22] MEDS: traMADol 50 MG TABLET PO PRN (12:36)
[2021-12-23] MEDS: INSULIN LISPRO 1 UNIT/0.01 ML UNIT SQ SCH ×5 (00:44→23:47)
[2021-12-23] MEDS: PIPERACILLIN SODIUM/TAZOBACTAM 3.375 GM in DEXTROSE 5% IN WATER 50 ML IV SCH ×2 (05:37→12:48)
--- NOTE | 2021-12-23 07:52 | Cat Scan Report ---
CLINICAL INFORMATION: Pelvic pain. Follow up diverticulitis COMPARISON: Abdomen and pelvic CT four days prior to 2021 TECHNIQUE: Following enteric contrast, 80 cc of Isovue-370 were injected intravenously, and 60 seconds later, 0.625 mm helical slices were obtained from the mid heart through the subtrochanteric regions. Following reconstruction, 2.5 mm sagittal, coronal and axial reformatted images were processed and reviewed at bone, lung and soft tissue windows. Five minutes later, 0.625 mm helical slices were obtained from the mid heart through the kidneys and viewed at soft tissue windows.The exam was performed using radiation dose optimization techniques including, but not limited to, automated exposure control, adjustment of the mA and/or kV according to patient size and use of iterative reconstruction technique. FINDINGS: The lung bases are clear. No effusions. The visualized heart is grossly normal. Abdominal images show mild fatty change within the liver, but no focal hepatic lesion. The gallbladder is surgically absent. Intrahepatic and common bile ducts are normal caliber: CBD is 6 mm. Both kidneys, adrenal glands, spleen, pancreas and aorta, including aortic branches, are normal in size configuration and attenuation without focal lesion. There is no free air, free fluid or adenopathy Pelvic images show hysterectomy oophorectomy changes. Urinary bladder is partially collapsed with diffuse wall thickening. This may be artifact of underdistention. Multiple diverticuli in the mid sigmoid colon with moderate eccentric wall thickening and perisigmoid phlegmon is compatible sigmoid diverticulitis. This shows modest progression. On the sagittal image, there is a small soft tissue cord is within the anterior wall of the inflamed sigmoid colon and the vaginal cuff. This could indicate a enterovaginal fistula. The remainder of the colon is unremarkable. The appendix is poorly visualized on today's exam-no gross change. Stomach and small bowel unremarkable. Bone windows show only degeneration in the lumbar lumbar spine. IMPRESSION: Sigmoid diverticulitis-slight progression from previous exam. No evidence of abscess. Suspect small enteral vaginal fistula as seen on previous exam. No change. Consider Hypaque enema. Appendix not well visualized. Tip of the appendix is located inferior medially near the sigmoid inflammation. No change. Interpreted and Authenticated by: Angel Patel 12/23/21
[2021-12-23] MEDS: PANTOPRAZOLE 40 MG TABLET PO SCH ×2 (07:56→17:18)
[2021-12-23] MEDS ORDERED: IOPAMIDOL 100 ML BOTTLE IV ONE (08:08)
[2021-12-23] MEDS: METOPROLOL TARTRATE 25 MG TABLET PO SCH ×2 (08:39→21:23)
[2021-12-23] MEDS: MAGNESIUM OXIDE 400 MG TABLET PO SCH (08:39)
[2021-12-23] MEDS: DILTIAZEM 180 MG CAP.XL.24H PO SCH (08:39)
[2021-12-23] MEDS: LEVOTHYROXINE 50 MCG TABLET PO SCH (08:39)
[2021-12-23] MEDS: traMADol 50 MG TABLET PO PRN (08:45)
[2021-12-23] MEDS ORDERED: PEG 3350/NA SULF,BICARB,CL/KCL 4,000 ML ORAL.SOL PO ONE (12:07)
[2021-12-23 13:58] LABS: ALT/SGPT 28 U/L (<40); AST/SGOT 25 U/L (<32); Albumin 4.3 gm/dL (3.2-5.2); Albumin/Globulin Ratio 1.4 (1.0-2.3); Alkaline Phosphatase 147 U/L (39-117); Bilirubin,Direct < 0.2 mg/dL (0-0.3); Bilirubin,Total 0.2 mg/dL (0.1-1.0); Blood Urea Nitrogen 8 mg/dL (8-23); Calcium 9.5 mg/dL (8.6-10.4); Carbon Dioxide 28 mmol/L (22-30); Chloride 102 mmol/L (96-108); Globulin 3.1 gm/dL (2.2-3.7); Glomerular Filtration Rate 92; Glucose 188 mg/dL (70-105); Lactate Dehydrogenase 180 U/L (135-225); Triglycerides 417 mg/dL (<150); Uric Acid 2.5 mg/dL (2.5-8.0)
[2021-12-23] MEDS ORDERED: metroNIDAZOLE 500 MG/100 ML BAG IV SCH (14:30)
--- NOTE | 2021-12-23 14:34 | General Surgery Progress Note ---
SUBJECTIVE Subjective Patient information: Note initiated : 12/23/21 at 2:25 pm Service Date, if different from initiated Date: [] Patient: Madeline Bocanegra 71 y/o F admitted on 12/20/21 for vaginal discharge. Chief Complaint: [] Interval history: Patient states that she feels better but she has more drainage through her vagina. She had a CT of abdomen and pelvis performed this morning which showed increase in size of the fistula and worsening diverticulitis. She is counseled for sigmoid colectomy and end will be performed in the morning. Constitutional Vitals: Vital Signs Temp Pulse Resp BP Pulse Ox O2 Del Method 98.3 F 84 20 129/51 96 12/23/21 08:00 12/23/21 08:00 12/23/21 08:00 12/23/21 08:00 12/23/21 08:00 12/23/21 08:00 Period Temp Pulse Resp BP Sys/Crews Pulse Ox O2 Del Method O2 Flow Rate Last 24 Hr 97.9 F-99.0 F 82-96 16-20 125-136/51-81 95-96 Room Air-Room Air Intake and Output 12/23/21 12/23/21 12/23/21 05:59 13:59 21:59 Intake Total 950 650 Output Total 2049 1300 Balance -1100 -650 Intake & Output: Intake & Output 12/23/21 12/23/21 12/23/21 05:59 13:59 21:59 Intake Total 950 650 Output Total 2049 1300 Balance -1100 -650 Intake: IV 50 50 Zosyn 3.375 gm In Dextrose 5% 50 50 in Water 50 ml @ 100 mls/hr IV Q6H [facility] Rx#:[id number] Oral 900 600 Output: Void Amount 2049 1300 Other: Urine Appearance Cloudy Clear Urine Color Yellow Yellow Urine Odor Normal Stool Size Small Stool Color Brown Stool Consistency Soft # Bowel Movements 2 Head Head exam: Present atraumatic, normal inspection and normocephalic Eye Eye exam: Present PERRL Pupils: Present normal accommodation ENT ENT exam: Present mucous membranes moist and normal oropharynx Neck Neck exam: Present full ROM and normal inspection Respiratory Respiratory exam: Present CTAB Cardiovascular Cardiovascular exam: Present RRR, +S1 and +S2; Absent JVD GI/Abdominal GI/Abdominal exam: Present normal bowel sounds and tenderness (Mild tenderness in left lower quadrant) Extremities Exam Extremities exam: Present neurovascular intact Neurological Exam Neurological exam: Present oriented X3; Absent motor sensory deficit Psychiatric Psychiatric exam: Present normal affect and normal mood A/P Assessment and plan (1) Acute diverticulitis of intestine: Status: Acute (2) Colovaginal fistula: Status: Acute (3) Appendicitis: Status: Acute (4) Diabetes mellitus type 2 in obese: Status: Chronic Plan Patient is counseled for sigmoid colectomy tomorrow. As since she has progressed on Zosyn her antibiotics were switched to meropenem Sepsis Sepsis Identified: No Time Spent With Patient Time: Total time spent is greater than 50% in coordination of care (as documented) at patient's floor/unit and/or counseling patient:
[2021-12-23] MEDS: MEROPENEM 2 GM in 0.9 % SODIUM CHLORIDE 50 ML IV SCH ×2 (15:20→21:23)
[2021-12-23 15:23] LABS: Basophils # (Auto) 0.06 K/mcL (0.00-0.30); Basophils % (Auto) 0.7 % (0.0-2.0); Eosinophils # (Auto) 0.21 K/mcL (0.00-0.70); Eosinophils % (Auto) 2.4 % (0.0-7.0); Hematocrit 37.6 % (34.1-44.9); Lymphocytes # (Auto) 1.83 K/mcL (1.50-4.80); Lymphocytes % (Auto) 20.7 % (15.5-49.0); Mean Cell Volume 84.1 fL (80.0-100.0); Mean Corpuscular HGB Conc 31.9 g/dL (31.0-36.0); Monocytes # (Auto) 0.71 K/mcL (0.10-0.90); Neutrophils % (Auto) 67.1 % (38.0-78.0); Platelet Count 302 K/mcL (140-440); RBC 4.47 M/mcL (3.59-5.38); Red Cell Distribution Width 14.3 % (11.5-14.5); WBC 8.8 K/mcL (4.5-11.0)
[2021-12-23 15:50] LABS: ALT/SGPT 29 U/L (<40); AST/SGOT 29 U/L (<32); Albumin 4.4 gm/dL (3.2-5.2); Albumin/Globulin Ratio 1.6 (1.0-2.3); Alkaline Phosphatase 141 U/L (39-117); Bilirubin,Direct < 0.2 mg/dL (0-0.3); Bilirubin,Total 0.2 mg/dL (0.1-1.0); Blood Urea Nitrogen 10 mg/dL (8-23); Calcium 9.5 mg/dL (8.6-10.4); Carbon Dioxide 30 mmol/L (22-30); Chloride 98 mmol/L (96-108); Globulin 2.7 gm/dL (2.2-3.7); Glomerular Filtration Rate 92; Glucose 123 mg/dL (70-105); Lactate Dehydrogenase 194 U/L (135-225); Phosphorous 3.5 mg/dL (2.5-4.5); Triglycerides 489 mg/dL (<150); Uric Acid 2.3 mg/dL (2.5-8.0)
[2021-12-24] MEDS: MEROPENEM 2 GM in 0.9 % SODIUM CHLORIDE 50 ML IV SCH ×3 (05:19→21:12)
[2021-12-24] MEDS: INSULIN LISPRO 1 UNIT/0.01 ML UNIT SQ SCH ×4 (05:24→23:48)
[2021-12-24] MEDS ORDERED: SCOPOLAMINE 1 PATCH PATCH TOPICAL PRN (08:00)
[2021-12-24] MEDS ORDERED: IPRATROPIUM/ALBUTEROL 3 ML AMPUL.NEB NEB PRN ×2 (08:00→10:40)
--- NOTE | 2021-12-24 08:06 | XRay Report ---
CLINICAL INFORMATION: Preop COMPARISON: None. TECHNIQUE: Portable FINDINGS: The heart size, mediastinum and pulmonary vessels are unremarkable. The lungs are clear. There are no effusions. The bones and soft tissues are within normal limits. IMPRESSION: Normal chest. Interpreted and Authenticated by: Angel Patel 12/24/21
[2021-12-24] MEDS ORDERED: TRANEXAMIC ACID 1,000 MG/10 ML VIAL ONE (08:25)
[2021-12-24] MEDS ORDERED: fentaNYL 100 MCG/2 ML VIAL IV ONE (08:25)
[2021-12-24] MEDS ORDERED: KETAMINE 50 MG/ML Syringe (ANEST) IV ONE (08:25)
[2021-12-24] MEDS ORDERED: DEXAMETHASONE 10 MG/ML VIAL ONE (08:25)
[2021-12-24] MEDS ORDERED: ROPIVACAINE HCL/PF 20 ML VIAL IJ ONE (08:25)
[2021-12-24] MEDS ORDERED: MAGNESIUM SULFATE 2 GM/50 ML BAG IV ONE (08:25)
[2021-12-24] MEDS ORDERED: PROPOFOL 200 MG/20 ML VIAL IV ONE (08:25)
[2021-12-24] MEDS ORDERED: LIDOCAINE HCL/PF 100 MG/5 ML SYRINGE IV ONE (08:25)
[2021-12-24] MEDS ORDERED: HYDROmorphone 1 MG/ML SYRINGE ONE (08:25)
[2021-12-24] MEDS ORDERED: ROCURONIUM 10 MG/ML ML IV ONE (08:25)
[2021-12-24] MEDS ORDERED: ONDANSETRON 4 MG/2 ML VIAL ONE ×2 (08:25→12:19)
[2021-12-24] MEDS ORDERED: SUGAMMADEX SODIUM 200 MG/2 ML VIAL IV ONE (08:25)
[2021-12-24] MEDS: METOPROLOL TARTRATE 25 MG TABLET PO SCH (08:50)
[2021-12-24] MEDS: DILTIAZEM 180 MG CAP.XL.24H PO SCH (08:50)
[2021-12-24] MEDS: PANTOPRAZOLE 40 MG TABLET PO SCH (08:50)
[2021-12-24] MEDS: LEVOTHYROXINE 50 MCG TABLET PO SCH (08:51)
[2021-12-24] MEDS: MAGNESIUM OXIDE 400 MG TABLET PO SCH (08:51)
[2021-12-24] MEDS ORDERED: ONDANSETRON 4 MG/2 ML VIAL IV PRN (10:40)
[2021-12-24] MEDS ORDERED: diphenhydrAMINE 50 MG/ML VIAL IV PRN (10:40)
[2021-12-24] MEDS ORDERED: NALOXONE HCL 0.4 MG/ML VIAL IV PRN (10:40)
[2021-12-24] MEDS ORDERED: PROMETHAZINE 25 MG/ML VIAL IV PRN (10:40)
[2021-12-24] MEDS ORDERED: LACTATED RINGERS 250 ML IV PRN (10:40)
[2021-12-24] MEDS ORDERED: ACETAMINOPHEN 1,000 MG/100 ML BAG IV ONE (10:40)
[2021-12-24] MEDS ORDERED: HYDROmorphone 0.5 MG/0.5 ML SYRINGE IV PRN (10:40)
[2021-12-24] MEDS ORDERED: fentaNYL 100 MCG/2 ML VIAL IV PRN (10:40)
[2021-12-24] MEDS ORDERED: LACTATED RINGERS 1,000 ML IV SCH (10:45)
--- NOTE | 2021-12-24 11:41 | Brief Operative Note ---
Brief Operative Note Date of procedure: 12/24/21 Pre-op diagnosis: acute diverticulitis with colovaginal fistula;appendicitis Post-op diagnosis: other (acute diverticulitis with colovaginal fistula and appendicitis) Procedure: segmental sigmoid colectomy ;appendectomy ;colostomy Grafts/Implants: No (SHAYNE DRAIN X1) Anesthesia: GETA Findings: MODERATELY SEVERE INFLAMMATION OF SIGMOID COLON WLTH ADHERENCE TO APEX OF VAGINA ;DENSE INFLAMMATORY ADHESIONS TO APPENDIX;SEVERE INFLAMMATION OF RECTAL POUCH Complications: none Surgeon: Toi Ceballos Estimated blood loss (cc): 225 Specimens Removed/Pathology: other (SIGMOID COLON) Condition: stable Disposition: PACU
[2021-12-24] MEDS ORDERED: METHOCARBAMOL 1,000 MG/10 ML VIAL IV ONE (12:01)
[2021-12-24] MEDS: MEPERIDINE 25 MG/ML VIAL IV PRN ×2 (12:03→12:14)
[2021-12-24] MEDS ORDERED: METHOCARBAMOL 1,000 MG/10 ML VIAL ONE (12:12)
[2021-12-24] MEDS ORDERED: PROMETHAZINE 25 MG/ML VIAL ONE (12:19)
[2021-12-24] MEDS ORDERED: hydrALAZINE 20 MG/ML VIAL IV PRN (13:05)
[2021-12-24] MEDS: ACETAMINOPHEN 1,000 MG/100 ML BAG IV SCH ×3 (14:07→23:38)
[2021-12-24] MEDS: KETOROLAC 30 MG/ML VIAL IV PRN ×2 (14:46→21:17)
[2021-12-24] MEDS: PANTOPRAZOLE 40 MG VIAL IV SCH (17:10)
[2021-12-25] MEDS: ACETAMINOPHEN 1,000 MG/100 ML BAG IV SCH (05:04)
[2021-12-25] MEDS: INSULIN LISPRO 1 UNIT/0.01 ML UNIT SQ SCH ×4 (05:08→23:29)
[2021-12-25] MEDS: MEROPENEM 2 GM in 0.9 % SODIUM CHLORIDE 50 ML IV SCH ×3 (05:38→21:33)
[2021-12-25] MEDS: HYDROmorphone 1 MG/ML SYRINGE IV PRN (05:40)
[2021-12-25] MEDS: PANTOPRAZOLE 40 MG VIAL IV SCH ×2 (07:49→17:16)
[2021-12-25] MEDS: LEVOTHYROXINE 100 MCG VIAL IV SCH (07:50)
[2021-12-25] MEDS: LEVOTHYROXINE 50 MCG TABLET PO SCH (07:50)
[2021-12-25] MEDS: KETOROLAC 30 MG/ML VIAL IV PRN ×2 (10:45→16:44)
--- NOTE | 2021-12-25 14:26 | General Surgery Progress Note ---
SUBJECTIVE Subjective Patient information: Note initiated : 12/25/21 at 2:23 pm Service Date, if different from initiated Date: [] Patient: Madeline Bocanegra 71 y/o F admitted on 12/20/21 for vaginal discharge. Chief Complaint: [] Interval history: Patient is doing well. Her abdominal pain is controlled however she has severe back pain which is related to her underlying spinal stenosis. She does not have any nausea. White blood count 8.8, hemoglobin 12, hematocrit 37.6, potassium 3.9, BUN 10, creatinine 0.6. Constitutional Vitals: Vital Signs Temp Pulse Resp BP Pulse Ox O2 Del Method O2 Flow Rate 97.2 F 101 H 16 126/58 92 2 12/25/21 08:00 12/25/21 08:00 12/25/21 08:00 12/25/21 08:00 12/25/21 08:00 12/25/21 08:00 12/24/21 23:45 Period Temp Pulse Resp BP Sys/Crews Pulse Ox O2 Del Method O2 Flow Rate Last 24 Hr 97.2 F-98.3 F 66-109 16-20 126-148/55-76 92-98 Nasal Cannula- Room Air 2-2 Intake and Output 12/25/21 12/25/21 12/25/21 05:59 13:59 21:59 Intake Total 200 50 Output Total 1780 40 Balance -1580 10 Intake & Output: Intake & Output 12/25/21 12/25/21 12/25/21 05:59 13:59 21:59 Intake Total 200 50 Output Total 1780 40 Balance -1580 10 Intake: IV 200 50 Merrem 2 gm In Sodium Chloride 50 0.9% 50 ml @ 100 mls/hr IV Q8H [facility] Rx#:[id number] Output: Gastric Drainage 200 NG/OG 200 Drainage 30 40 LUKAS Drain 30 40 Urine Catheter Amount 1550 Other: Urine Appearance Clear Uretheral (Van) Clear Urine Color Yellow Uretheral (Van) Yellow Neck Neck exam: Present full ROM and normal inspection Respiratory Respiratory exam: Present normal respiratory exam and CTAB Cardiovascular Cardiovascular exam: Present normal rate and rhythm, gallop, RRR, +S1 and +S2; Absent JVD GI/Abdominal GI/Abdominal exam: Present diminished bowel sounds and distended Additional comments: Stoma looks good Extremities Exam Extremities exam: Present normal inspection and neurovascular intact Neurological Exam Neurological exam: Present alert, normal gait and oriented X3; Absent motor sensory deficit Psychiatric Psychiatric exam: Present normal affect and normal mood A/P Assessment and plan (1) Acute diverticulitis of intestine: Status: Acute (2) Colovaginal fistula: Status: Acute (3) Other low back pain: Status: Chronic (4) Diabetes mellitus type 2 in obese: Status: Chronic Plan CHECK A M labs oob ad joe Time Spent With Patient Time: Total time spent is greater than 50% in coordination of care (as documented) at patient's floor/unit and/or counseling patient:
[2021-12-25] MEDS: METHOCARBAMOL 1,000 MG/10 ML VIAL IV PRN (15:48)
[2021-12-25] MEDS: 0.9 % SODIUM CHLORIDE 1,000 ML IV SCH (17:16)
[2021-12-25] MEDS: METOPROLOL TARTRATE 5 MG/5 ML VIAL IV PRN (23:42)
[2021-12-26] MEDS: KETOROLAC 30 MG/ML VIAL IV PRN ×3 (00:19→13:58)
[2021-12-26] MEDS: 0.9 % SODIUM CHLORIDE 1,000 ML IV SCH ×4 (03:36→22:25)
[2021-12-26] MEDS: METHOCARBAMOL 1,000 MG/10 ML VIAL IV PRN ×2 (03:57→15:30)
[2021-12-26] MEDS: MEROPENEM 2 GM in 0.9 % SODIUM CHLORIDE 50 ML IV SCH ×3 (05:22→22:20)
[2021-12-26] MEDS: INSULIN LISPRO 1 UNIT/0.01 ML UNIT SQ SCH ×4 (05:22→23:34)
[2021-12-26] MEDS: METOPROLOL TARTRATE 5 MG/5 ML VIAL IV PRN ×2 (06:07→22:54)
[2021-12-26 06:08] LABS: Basophils # (Auto) 0.03 K/mcL (0.00-0.30); Basophils % (Auto) 0.3 % (0.0-2.0); Eosinophils # (Auto) 0.02 K/mcL (0.00-0.70); Eosinophils % (Auto) 0.2 % (0.0-7.0); Hematocrit 31.9 % (34.1-44.9); Hemoglobin 9.9 g/dL (11.2-15.7); Lymphocytes # (Auto) 2.13 K/mcL (1.50-4.80); Lymphocytes % (Auto) 20.9 % (15.5-49.0); Mean Cell Volume 85.3 fL (80.0-100.0); Mean Platelet Volume 8.8 fL (8.8-12.5); Monocytes # (Auto) 0.65 K/mcL (0.10-0.90); Monocytes % (Auto) 6.4 % (1.0-12.0); Platelet Count 268 K/mcL (140-440); RBC 3.74 M/mcL (3.59-5.38); Red Cell Distribution Width 14.5 % (11.5-14.5); WBC 10.2 K/mcL (4.5-11.0)
[2021-12-26 07:08] LABS: ALT/SGPT 44 U/L (<40); AST/SGOT 29 U/L (<32); Albumin 3.4 gm/dL (3.2-5.2); Albumin/Globulin Ratio 1.5 (1.0-2.3); Alkaline Phosphatase 123 U/L (39-117); Bilirubin,Direct < 0.2 mg/dL (0-0.3); Bilirubin,Total 0.2 mg/dL (0.1-1.0); Blood Urea Nitrogen 9 mg/dL (8-23); Calcium 8.2 mg/dL (8.6-10.4); Carbon Dioxide 27 mmol/L (22-30); Chloride 101 mmol/L (96-108); Globulin 2.2 gm/dL (2.2-3.7); Glomerular Filtration Rate 98; Glucose 117 mg/dL (70-105); Lactate Dehydrogenase 181 U/L (135-225); Phosphorous 1.1 mg/dL (2.5-4.5); Triglycerides 155 mg/dL (<150); Uric Acid 3.1 mg/dL (2.5-8.0)
[2021-12-26] MEDS: LEVOTHYROXINE 100 MCG VIAL IV SCH (07:45)
[2021-12-26] MEDS: PANTOPRAZOLE 40 MG VIAL IV SCH ×2 (07:45→17:16)
[2021-12-26] MEDS: LEVOTHYROXINE 50 MCG TABLET PO SCH (07:46)
[2021-12-26] MEDS: LIDOCAINE PATCH TOPICAL SCH (09:30)
--- NOTE | 2021-12-26 16:23 | General Surgery Progress Note ---
SUBJECTIVE Subjective Patient information: Note initiated : 12/26/21 at 4:18 pm Service Date, if different from initiated Date: [] Patient: Madeline Bocanegra 71 y/o F admitted on 12/20/21 for vaginal discharge. Chief Complaint: [] Interval history: Patient is stable except moderately severe back pain. She has not had much relief with Toradol and Robaxin. She has started to have through her stoma and has she has excellent bowel sounds. Her incisional pain is well controlled. White blood count is normal hemoglobin is stable. BUN/creatinine stable Constitutional Vitals: Vital Signs Temp Pulse Resp BP Pulse Ox O2 Del Method O2 Flow Rate 97.6 F 87 14 129/53 97 2 12/26/21 12:00 12/26/21 12:00 12/26/21 12:00 12/26/21 12:00 12/26/21 12:00 12/26/21 12:00 12/24/21 23:45 Period Temp Pulse Resp BP Sys/Crews Pulse Ox O2 Del Method O2 Flow Rate Last 24 Hr 97.5 F-99.1 F 87-120 12-18 126-134/53-59 92-97 Room Air-Room Air Intake and Output 12/26/21 12/26/21 12/26/21 05:59 13:59 21:59 Intake Total 1100 1000 50 Output Total 1130 1291 Balance -30 -291 50 Weight 228 lb 8 oz Patient Weight 12/27/21 05:59 Weight 228 lb 8 oz Intake & Output: Intake & Output 12/26/21 12/26/21 12/26/21 05:59 13:59 21:59 Intake Total 1100 1000 50 Output Total 1130 1291 Balance -30 -291 50 Weight 228 lb 8 oz Intake: IV 1100 1000 50 Sodium Chloride 0.9% 1,000 ml @ 1000 1000 100 mls/hr IV .Q10H [facility] Rx#: [id number] Merrem 2 gm In Sodium Chloride 100 50 0.9% 50 ml @ 100 mls/hr IV Q8H [facility] Rx#:[id number] Oral 0 Output: Gastric Drainage 150 NG/OG 150 Drainage 30 16 LUKAS Drain 30 16 Urine Catheter Amount 950 1275 Stool 0 Other: Urine Appearance Clear Clear Uretheral (Van) Clear Urine Color Yellow Yellow Uretheral (Van) Yellow Urine Odor Uretheral (Van) Normal ENT ENT exam: Present mucous membranes moist and normal oropharynx Neck Neck exam: Present full ROM and normal inspection Respiratory Respiratory exam: Present normal respiratory exam and CTAB Cardiovascular Cardiovascular exam: Present normal rate and rhythm, RRR, +S1 and +S2; Absent JVD GI/Abdominal GI/Abdominal exam: Present normal bowel sounds, soft and tenderness (No major tenderness); Absent distended Additional comments: Stoma is healthy and is having liquid stool Extremities Exam Extremities exam: Present normal inspection and neurovascular intact Neurological Exam Neurological exam: Present oriented X3 and reflexes normal Psychiatric Psychiatric exam: Present normal affect and normal mood A/P Assessment and plan (1) Acute diverticulitis of intestine: Status: Acute (2) Colovaginal fistula: Status: Acute (3) Other low back pain: Status: Chronic Plan Discontinue Robaxin Flexeril at 10 mg every 6 hours as needed Discontinue nasogastric tube Clear liquid diet Increase activity as tolerated Sepsis Sepsis Identified: No Time Spent With Patient Time: Total time spent is greater than 50% in coordination of care (as documented) at patient's floor/unit and/or counseling patient:
[2021-12-26] MEDS: KETOROLAC 15 MG/ML VIAL IV SCH (20:30)
[2021-12-26] MEDS: CYCLOBENZAPRINE 10 MG TABLET PO SCH ×2 (20:30→21:57)
[2021-12-27] MEDS: KETOROLAC 15 MG/ML VIAL IV SCH ×4 (01:52→20:05)
[2021-12-27] MEDS: 0.9 % SODIUM CHLORIDE 1,000 ML IV SCH ×3 (01:53→12:48)
[2021-12-27] MEDS: MEROPENEM 2 GM in 0.9 % SODIUM CHLORIDE 50 ML IV SCH ×3 (05:08→21:08)
[2021-12-27] MEDS: INSULIN LISPRO 1 UNIT/0.01 ML UNIT SQ SCH ×4 (05:08→20:07)
[2021-12-27 06:11] LABS: Basophils # (Auto) 0.07 K/mcL (0.00-0.30); Basophils % (Auto) 0.8 % (0.0-2.0); Eosinophils # (Auto) 0.08 K/mcL (0.00-0.70); Hematocrit 31.6 % (34.1-44.9); Lymphocytes # (Auto) 2.17 K/mcL (1.50-4.80); Lymphocytes % (Auto) 26.2 % (15.5-49.0); Mean Cell Volume 84.7 fL (80.0-100.0); Mean Corpuscular HGB Conc 31.6 g/dL (31.0-36.0); Mean Platelet Volume 8.7 fL (8.8-12.5); Monocytes % (Auto) 7.3 % (1.0-12.0); Neutrophils % (Auto) 62.8 % (38.0-78.0); Platelet Count 263 K/mcL (140-440); RBC 3.73 M/mcL (3.59-5.38); Red Cell Distribution Width 14.4 % (11.5-14.5); WBC 8.3 K/mcL (4.5-11.0)
[2021-12-27 06:58] LABS: ALT/SGPT 46 U/L (<40); AST/SGOT 33 U/L (<32); Albumin 3.4 gm/dL (3.2-5.2); Albumin/Globulin Ratio 1.5 (1.0-2.3); Alkaline Phosphatase 132 U/L (39-117); Bilirubin,Direct < 0.2 mg/dL (0-0.3); Bilirubin,Total 0.3 mg/dL (0.1-1.0); Blood Urea Nitrogen 9 mg/dL (8-23); Calcium 8.2 mg/dL (8.6-10.4); Carbon Dioxide 26 mmol/L (22-30); Chloride 103 mmol/L (96-108); Globulin 2.2 gm/dL (2.2-3.7); Glomerular Filtration Rate 98; Glucose 107 mg/dL (70-105); Lactate Dehydrogenase 197 U/L (135-225); Phosphorous 1.3 mg/dL (2.5-4.5); Triglycerides 148 mg/dL (<150); Uric Acid 3.3 mg/dL (2.5-8.0)
[2021-12-27] MEDS: PANTOPRAZOLE 40 MG VIAL IV SCH ×2 (07:17→17:33)
[2021-12-27] MEDS: LEVOTHYROXINE 100 MCG VIAL IV SCH (07:17)
[2021-12-27] MEDS: CYCLOBENZAPRINE 10 MG TABLET PO SCH ×4 (08:26→20:06)
[2021-12-27] MEDS: HYDROmorphone 1 MG/ML SYRINGE IV PRN ×2 (08:34→11:02)
[2021-12-27] MEDS: LIDOCAINE PATCH TOPICAL SCH (12:50)
--- NOTE | 2021-12-27 16:50 | General Surgery Progress Note ---
SUBJECTIVE Subjective Patient information: Note initiated : 12/27/21 at 4:46 pm Service Date, if different from initiated Date: [] Patient: Madeline Bocanegra 71 y/o F admitted on 12/20/21 for vaginal discharge. Chief Complaint: [] Interval history: Patient continues to improve. She has excellent output through her stoma and has tolerated liquids. Urine output is also very good. She complains of hunger. She has been afebrile. Her serum phosphorus is one-point Constitutional Vitals: Vital Signs Temp Pulse Resp BP Pulse Ox O2 Del Method O2 Flow Rate 97.4 F 91 H 17 140/63 97 2 12/27/21 12:00 12/27/21 11:31 12/27/21 11:31 12/27/21 11:31 12/27/21 11:31 12/27/21 11:31 12/24/21 23:45 Period Temp Pulse Resp BP Sys/Crews Pulse Ox O2 Del Method O2 Flow Rate Last 24 Hr 97.3 F-98.3 F 83-118 14-18 127-146/59-71 95-97 Room Air-Room Air Intake and Output 12/27/21 12/27/21 12/27/21 05:59 13:59 21:59 Intake Total 1250 1050 Output Total 1213 880 Balance 37 170 Intake & Output: Intake & Output 12/27/21 12/27/21 12/27/21 05:59 13:59 21:59 Intake Total 1250 1050 Output Total 1213 880 Balance 37 170 Intake: IV 1050 1050 Sodium Chloride 0.9% 1,000 ml @ 1000 1000 100 mls/hr IV .Q10H [facility] Rx#: [id number] Merrem 2 gm In Sodium Chloride 50 50 0.9% 50 ml @ 100 mls/hr IV Q8H [facility] Rx#:[id number] Oral 200 Output: Drainage 38 30 LUKAS Drain 38 30 Urine Catheter Amount 1125 850 Uretheral (Van) 850 Stool 50 Other: Urine Appearance Clear Uretheral (Van) Clear Urine Color Yellow Yellow Uretheral (Van) Bright Yellow Yellow Stool Color Brown Neck Neck exam: Present full ROM and normal inspection Respiratory Respiratory exam: Present normal respiratory exam and CTAB Cardiovascular Cardiovascular exam: Present normal rate and rhythm, RRR, +S1 and +S2; Absent JVD GI/Abdominal GI/Abdominal exam: Present normal bowel sounds Additional comments: Incision looks good; stoma is healthy; she has excellent bowel sounds Extremities Exam Extremities exam: Present neurovascular intact; Absent pedal edema Back Exam Additional comments: Moderate severe lumbar pain persists Neurological Exam Neurological exam: Present oriented X3 and reflexes normal; Absent motor sensory deficit Psychiatric Psychiatric exam: Present normal affect and normal mood A/P Assessment and plan (1) Acute diverticulitis of intestine: Status: Acute (2) Colovaginal fistula: Status: Acute (3) Appendicitis: Status: Acute (4) Radiculopathy, lumbosacral region: Status: Acute (5) 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
--- NOTE | 2021-12-27 16:59 | Operative Note ---
DATE OF OPERATION: 12/24/2021 PREOPERATIVE DIAGNOSIS: Acute diverticulitis with colovaginal fistula and appendicitis. POSTOPERATIVE DIAGNOSES: Acute diverticulitis with colovaginal fistula and appendicitis. PROCEDURE: Segmental sigmoid colectomy, appendectomy, and colostomy. SURGEON: Toi Ceballos M.D. FINDINGS: Moderately severe inflammation of sigmoid colon with dense adherence to the apex of the vagina; dense inflammatory adhesions to the appendix; severe inflammation of the rectal pouch. DESCRIPTION OF PROCEDURE: Under general anesthesia, the patient's abdomen was prepped and draped in a sterile field. A timeout procedure was carried out as per protocol. A midline incision was made. Upon entering the peritoneal cavity, there was acute inflammation of the sigmoid colon with three hard nodules and some acute and chronic inflammation adherent to the posterior wall of the bladder at the apex of the vagina. There was also some adherence to the lateral pelvic wall on the left. Using primarily blunt dissection, the attachments to the lateral pelvic wall were and the adherence to the apex of the vagina was . A very tiny opening was found in the vagina. A small clamp was placed in this to verify it. This was closed with a 2-0 Monocryl. The rest of the sigmoid was then thoroughly dissected. On the right side, the distal appendix was densely adherent to the inflammatory process. The appendix was dissected back to its junction with the cecum and was transected after being stapled twice at the base with a TA 30 stapler. It was left adherent to the sigmoid. Irrigation was carried out. The sigmoid was then divided proximally. The mesentery to the sigmoid was divided using a LigaSure stapler. This was carried down to the peritoneal reflection. There was moderately severe inflammation of the rectum beneath the peritoneal reflection. The inflammation and dense adhesions were too prominent for primary anastomosis. The wall was severely thickened and inflamed, and it was felt that the rectal pouch was too infected for reanastomosis. Next, the sigmoid was divided at the peritoneal reflection using electrocautery. Dense inflammation in the wall was acknowledged, and it was decided to just do primary closure of the rectum. This was closed with 2-0 Monocryl and marked with two sutures of 2-0 Prolene. Irrigation was carried out. The specimen was passed off. Back table was exchanged and gloves and gowns were exchanged. Opening in the left lateral abdomen was made and the end of the proximal sigmoid was brought through this for colostomy. The wall of the sigmoid was sutured to the peritoneum using interrupted 3-0 silk. Sponge, needle, instrument, and blade counts were verified as correct. A Mendoza drain was placed in the depth of the pelvis and brought out in the right lower quadrant. Sponge, needle, instrument, and blade counts were verified as correct. The fascia was closed with #1 Prolene on the midline, a 2-0 Monocryl in the subcutaneous tissue, and ross on the skin. The wall of the sigmoid was sutured to the anterior rectus fascia using about eight sutures of 2-0 silk. The end of the colon was sutured to the dermis using running 3-0 Vicryl. The patient tolerated the procedure well. A midline dressing was placed. Stoma appliance was placed. A drain was secured with 2-0 nylon. The patient tolerated the procedure well. She was awakened successfully without difficulty and transferred to the postanesthetic care unit in satisfactory condition. LCS:galileo Job ID: [id number] Doc ID: [id number] Toi Ceballos M.D.
[2021-12-27] MEDS: traMADol 50 MG TABLET PO PRN (17:48)
[2021-12-27] MEDS: NEUTRA PHOS 1 PACKET PO SCH (20:05)
[2021-12-28] MEDS: traMADol 50 MG TABLET PO PRN ×4 (01:13→21:19)
[2021-12-28] MEDS: KETOROLAC 15 MG/ML VIAL IV SCH ×3 (01:14→14:56)
[2021-12-28] MEDS: MEROPENEM 2 GM in 0.9 % SODIUM CHLORIDE 50 ML IV SCH ×3 (05:13→21:19)
[2021-12-28] MEDS: HYDROmorphone 1 MG/ML SYRINGE IV PRN (05:14)
[2021-12-28 06:20] LABS: Basophils # (Auto) 0.05 K/mcL (0.00-0.30); Basophils % (Auto) 0.6 % (0.0-2.0); Eosinophils # (Auto) 0.18 K/mcL (0.00-0.70); Eosinophils % (Auto) 2.3 % (0.0-7.0); Hematocrit 32.8 % (34.1-44.9); Hemoglobin 10.3 g/dL (11.2-15.7); Lymphocytes % (Auto) 27.2 % (15.5-49.0); Mean Cell Volume 84.8 fL (80.0-100.0); Mean Corpuscular HGB Conc 31.4 g/dL (31.0-36.0); Mean Platelet Volume 8.6 fL (8.8-12.5); Monocytes # (Auto) 0.46 K/mcL (0.10-0.90); Platelet Count 276 K/mcL (140-440); RBC 3.87 M/mcL (3.59-5.38); Red Cell Distribution Width 14.5 % (11.5-14.5); WBC 7.7 K/mcL (4.5-11.0)
[2021-12-28] MEDS: PANTOPRAZOLE 40 MG VIAL IV SCH ×2 (06:57→17:00)
[2021-12-28] MEDS: LEVOTHYROXINE 100 MCG VIAL IV SCH (06:57)
[2021-12-28] MEDS: INSULIN LISPRO 1 UNIT/0.01 ML UNIT SQ SCH ×4 (07:21→21:19)
[2021-12-28] MEDS: CYCLOBENZAPRINE 10 MG TABLET PO SCH ×4 (08:46→21:19)
[2021-12-28] MEDS: NEUTRA PHOS 1 PACKET PO SCH ×2 (08:47→21:18)
[2021-12-28] MEDS: LIDOCAINE PATCH TOPICAL SCH (11:13)
--- NOTE | 2021-12-28 16:31 | General Surgery Progress Note ---
SUBJECTIVE Subjective Patient information: Note initiated : 12/28/21 at 4:27 pm Service Date, if different from initiated Date: [] Patient: Madeline Bocanegra 71 y/o F admitted on 12/20/21 for vaginal discharge. Chief Complaint: [] Interval history: Patient continues to improve. She still has significant back pain. She was able to ambulate today with the assistance of physical therapy. She is tolerating diet without difficulty and is assisting with changing her stoma appliance. She is healing to get up to void without difficulty. Constitutional Vitals: Vital Signs Temp Pulse Resp BP Pulse Ox O2 Del Method O2 Flow Rate 98.0 F 102 H 18 107/84 98 2 12/28/21 11:22 12/28/21 11:22 12/28/21 11:22 12/28/21 11:22 12/28/21 11:22 12/28/21 11:22 12/24/21 23:45 Period Temp Pulse Resp BP Sys/Crews Pulse Ox O2 Del Method O2 Flow Rate Last 24 Hr 96.9 F-98.0 F 95-125 18-24 107-138/64-84 95-98 Room Air-Room Air Intake and Output 12/28/21 12/28/21 12/28/21 05:59 13:59 21:59 Intake Total 1650 800 Output Total 395 730 Balance 1255 70 Intake & Output: Intake & Output 12/28/21 12/28/21 12/28/21 05:59 13:59 21:59 Intake Total 1650 800 Output Total 395 730 Balance 1255 70 Intake: IV 1050 50 Sodium Chloride 0.9% 1,000 ml @ 1000 100 mls/hr IV .Q10H [facility] Rx#: [id number] Merrem 2 gm In Sodium Chloride 50 50 0.9% 50 ml @ 100 mls/hr IV Q8H [facility] Rx#:[id number] Oral 400 750 GI Tube Flush 200 Output: Drainage 45 30 LUKAS Drain 45 30 Void Amount 350 600 Stool 0 100 Other: Meal Lunch Percent of Meal Consumed 75% Feeding Ability Assist with Tray Set Up Urine Appearance Clear Clear Urine Color Yellow Dark Yellow Urine Odor Normal Stool Size Small Stool Color Brown Brown Stool Consistency Liquid Respiratory Respiratory exam: Present normal respiratory exam and CTAB Cardiovascular Cardiovascular exam: Present normal rate and rhythm, RRR, +S1 and +S2; Absent JVD GI/Abdominal GI/Abdominal exam: Present normal bowel sounds, soft and tenderness (Minimal incisional tenderness; stoma looks good); Absent distended or hernia Extremities Exam Extremities exam: Present neurovascular intact Back Exam Additional comments: Moderate tenderness of lower lumbar sacral area Neurological Exam Neurological exam: Present alert and oriented X3; Absent motor sensory deficit Psychiatric Psychiatric exam: Present normal affect and normal mood A/P Assessment and plan (1) Acute diverticulitis of intestine: Status: Acute (2) Colovaginal fistula: Status: Acute (3) Other low back pain: Status: Chronic Plan Patient is clinically stable and should be able to be discharged home with home health assistance Time Spent With Patient Time: Total time spent is greater than 50% in coordination of care (as documented) at patient's floor/unit and/or counseling patient:
[2021-12-29] MEDS: MEROPENEM 2 GM in 0.9 % SODIUM CHLORIDE 50 ML IV SCH ×2 (06:00→13:58)
[2021-12-29 06:05] LABS: Basophils # (Auto) 0.04 K/mcL (0.00-0.30); Basophils % (Auto) 0.5 % (0.0-2.0); Eosinophils # (Auto) 0.35 K/mcL (0.00-0.70); Eosinophils % (Auto) 4.4 % (0.0-7.0); Hematocrit 33.4 % (34.1-44.9); Hemoglobin 10.5 g/dL (11.2-15.7); Lymphocytes # (Auto) 2.12 K/mcL (1.50-4.80); Lymphocytes % (Auto) 26.4 % (15.5-49.0); Mean Cell Volume 84.8 fL (80.0-100.0); Mean Corpuscular HGB Conc 31.4 g/dL (31.0-36.0); Mean Platelet Volume 8.7 fL (8.8-12.5); Monocytes # (Auto) 0.49 K/mcL (0.10-0.90); Monocytes % (Auto) 6.1 % (1.0-12.0); Neutrophils % (Auto) 60.4 % (38.0-78.0); Platelet Count 274 K/mcL (140-440); RBC 3.94 M/mcL (3.59-5.38); Red Cell Distribution Width 14.6 % (11.5-14.5)
[2021-12-29 06:44] LABS: ALT/SGPT 77 U/L (<40); AST/SGOT 41 U/L (<32); Albumin 3.3 gm/dL (3.2-5.2); Albumin/Globulin Ratio 1.3 (1.0-2.3); Alkaline Phosphatase 147 U/L (39-117); Bilirubin,Direct < 0.2 mg/dL (0-0.3); Bilirubin,Total 0.4 mg/dL (0.1-1.0); Blood Urea Nitrogen 9 mg/dL (8-23); Calcium 8.5 mg/dL (8.6-10.4); Carbon Dioxide 30 mmol/L (22-30); Chloride 100 mmol/L (96-108); Globulin 2.5 gm/dL (2.2-3.7); Glomerular Filtration Rate 98; Glucose 121 mg/dL (70-105); Lactate Dehydrogenase 179 U/L (135-225); Phosphorous 2.2 mg/dL (2.5-4.5); Triglycerides 228 mg/dL (<150); Uric Acid 2.9 mg/dL (2.5-8.0)
[2021-12-29] MEDS: INSULIN LISPRO 1 UNIT/0.01 ML UNIT SQ SCH ×2 (07:49→11:31)
[2021-12-29] MEDS: PANTOPRAZOLE 40 MG VIAL IV SCH (07:49)
[2021-12-29] MEDS: LEVOTHYROXINE 100 MCG VIAL IV SCH (07:49)
[2021-12-29] MEDS: NEUTRA PHOS 1 PACKET PO SCH (08:01)
[2021-12-29] MEDS: traMADol 50 MG TABLET PO PRN ×2 (08:01→13:44)
[2021-12-29] MEDS: CYCLOBENZAPRINE 10 MG TABLET PO SCH ×2 (08:01→12:00)
[2021-12-29] MEDS: LIDOCAINE PATCH TOPICAL SCH (10:39)
--- NOTE | 2021-12-29 13:14 | Discharge Summary ---
Discharge Provider Provider IMPORTANT FOLLOW-UP INFORMATION FOR PCP: Patient information: Note initiated : 12/29/21 at 1:12 pm Service Date, if different from initiated Date: [] Patient: Madeline Bocanegra 71 y/o F admitted on 12/20/21 for vaginal discharge. Chief Complaint: [] Date of admission: 12/20/21 03:15 Discharge date: 12/29/21 Primary care physician: Angel Trejo DO Admitting clinician: Toi Ceballos Attending physician on admission: Toi Ceballos Consults: 12/20/21 02:46 Consult to Physician [CONS] Stat Comment: Consulting Provider: Toi Ceballos Reason For Exam: Physician to Consult Attending physician on discharge: Toi Ceballos Discharging clinician: Toi Ceballos COURSE Hospital Course Hospital course: 71-year-old female admitted on 20 December with evidence of acute diverticulitis with total vaginal fistula. The plan was to treat her with antibiotics and take care of her acute phase will discharge home after 5 days and 2 weeks of antibiotics from operation however follow-up CT 4 days postop showed progression of the inflammation and enlargement of the fistula. She was explored and had segmental colectomy with colostomy and closure of the vaginal fistula. She has done well and her stoma is functioning appropriately. She is stable for discharge home with home health care. The Discharge diagnosis: Acute diverticulitis Secondary discharge diagnosis: Colovaginal fistula Diabetes mellitus Hypertension Reason for admission: Acute diverticulitis with vaginal drainage Procedures: Sigmoid colectomy with closure of the vaginal fistula and end colostomy Pertinent studies/significant findings: CT of abdomen and pelvis with contrast Complications: None Time Spent with Patient Time attestation: Total time spent providing and/or coordinating discharge services: Time spent: Less than 30 minutes Physical Examination Vital Signs Vital signs: Temp Pulse Resp BP Pulse Ox O2 Del Method O2 Flow Rate 97.8 F 115 H 18 147/71 97 2 12/29/21 11:34 12/29/21 11:34 12/29/21 11:34 12/29/21 11:34 12/29/21 11:34 12/29/21 11:34 12/24/21 23:45 General physical appearance General physical exam: well developed, well nourished, no distress, no pain and other (Severe low back pain) Eyes Eye exam: PERRL and normal ocular movement ENT ENT exam: normal mucosa, no hearing loss and no congestion Head Head exam IM: Present atraumatic, normal inspection and normocephalic Neck Neck exam: no masses, no bruits, trachea midline, no lymphadenopathy and no venous distension Cardiovascular Cardiovascular exam IM: Present normal rate and rhythm, RRR, +S1 and +S2; Absent JVD or tachycardia Respiratory Respiratory exam: normal expansion, normal respiratory effort and clear to auscultation Abdomen Abdomen: Present soft, non tender, bowel sounds and surgical scars (Incision is healing nicely; stoma is healthy) Integumentary Integumentary: Present no rash, no growths and no abnormal pigmentation Neurologic Neurologic: Present normal coordination and normal sensation Musculoskeletal Musculoskeletal: Present normal gait and normal posture Psychiatric Psychiatric: Present oriented to time, oriented to person, oriented to place, speech is normal and memory intact Discharge Plan Patient/Caregiver Discharge Instructions Activity: increase activity as tolerated Diet: Regular Diet Prescriptions: New oxycodone-acetaminophen [Endocet] 10-325 mg tablet 1 tab PO Q4H PRN (Reason: Pain) Qty: 40 0RF ciprofloxacin HCl [ciprofloxacin HCl] 500 mg tablet 500 mg PO BID Qty: 20 0RF metronidazole 500 mg tablet 500 mg PO TID MDD LeftShe Qty: 30 0RF Continued loratadine 10 mg tablet 10 mg PO QDAY PRN (Reason: allergy symptoms) Qty: 90 3RF magnesium oxide 400 mg tablet 400 mg PO QDAY Qty: 90 3RF metoprolol tartrate 25 mg tablet 25 mg PO BID Qty: 180 3RF (DME) Accu-Chek Kylie Plus test strp Strip See Dose Instructions .ROUTE .MEDSUPPLY Qty: 100 3RF Dose Instruction: As directed Rx Instructions: testing blood glucose once daily pioglitazone 30 mg tablet 30 mg PO QDAY Qty: 90 3RF levothyroxine 50 mcg tablet 50 mcg PO QDAY Qty: 90 3RF metformin 500 mg tablet 500 mg PO BID Qty: 180 3RF diltiazem HCl [Cartia XT] 180 mg capsule,extended release 24hr 180 mg PO QDAY Qty: 90 3RF celecoxib 200 mg capsule 200 mg PO QDAY Qty: 90 3RF aspirin 325 mg tablet 325 mg PO QDAY tramadol 50 mg tablet 50 mg PO BID PRN (Reason: pain (scale score 7-10)) Qty: 30 0RF docusate sodium 100 mg capsule 100 mg PO BID omeprazole 20 mg capsule,delayed release(DR/EC) 20 mg PO DAILY PreserVision AREDS-2 2 cap PO DAILY Adults Multivitamin 1 tab PO DAILY polyethylene glycol 3350 [Miralax] 17 gram Powder In Packet 17 g PO DAILY PRN (Reason: Constipation) flaxseed oil 1,000 mg Capsule 1,000 mg PO QDAY Rx Instructions: administer with a meal Fish Oil Extra Strength 435-880 mg Capsule 1,360 cap PO DAILY Trulicity 1.5 mg/0.5 mL Pen Injector 1.5 mg SUBCUT WEEKLY atorvastatin 40 mg tablet 1 tab PO HS Prescription drug monitoring program results: PDMP not reviewed Follow Up Plan Follow up with: Angel Trejo DO [Primary Care Provider] - Toi Ceballos MD [Physician] - (Contact office for appointment in 2 weeks) Patient Disposition: Home Health Service Prognosis: Good Rehab Potential: Good I certify that the patient requires SNF services: No Overall status at discharge: patient is progressing back to baseline Discharge Orders: Discharge Order (Routine); Ordered 12/29/21 Ordered By: Toi Ceballos Pending Pending Pending: Resuscitation Status Resuscitate (Full Code) Diet GI Soft/Transitional Start SatDec 27 1642 Cyclobenzaprine HCl (Cyclobenzaprine 10 Mg Tablet) 10 mg PO QID [facility]HIANA [facility] Admin: 12/29/21 12:00 Dose: 10 mg Documented By: Admin: 12/29/21 08:01 Dose: 10 mg Documented By: Admin: 12/28/21 21:19 Dose: 10 mg Documented By: Admin: 12/28/21 17:00 Dose: 10 mg Documented By: Admin: 12/28/21 12:16 Dose: 10 mg Documented By: Admin: 12/28/21 08:46 Dose: 10 mg Documented By: Admin: 12/27/21 20:06 Dose: 10 mg Documented By: Admin: 12/27/21 17:34 Dose: 10 mg Documented By: Admin: 12/27/21 12:47 Dose: 10 mg Documented By: Admin: 12/27/21 08:26 Dose: 10 mg Documented By: Admin: 12/26/21 21:57 Dose: Not Given Documented By: Admin: 12/26/21 20:30 Dose: 10 mg Documented By: JUMA Diagnostic Test (Pha) (Accu-Chek 1 Each Strip) 1 each FS ACHS DAHIANA Last Admin: 12/29/21 11:31 Dose: 1 each Documented By: Admin: 12/29/21 07:49 Dose: 1 each Documented By: Admin: 12/28/21 21:18 Dose: 1 each Documented By: Admin: 12/28/21 16:32 Dose: 1 each Documented By: Admin: 12/28/21 11:12 Dose: 1 each Documented By: Admin: 12/28/21 07:05 Dose: 1 each Documented By: Admin: 12/27/21 20:06 Dose: 1 each Documented By: Admin: 12/27/21 17:37 Dose: 1 each Documented By: GAUTAM Hydromorphone HCl (Hydromorphone 1 Mg/Ml Syringe) 1 mg IV Q2HP PRN; Protocol PRN Reason: Per Pain Protocol Last Admin: 12/28/21 05:14 Dose: 1 mg Documented By: Admin: 12/27/21 11:02 Dose: 1 mg Documented By: Admin: 12/27/21 08:34 Dose: 1 mg Documented By: Admin: 12/25/21 05:40 Dose: 1 mg Documented By: JUMA Meropenem 2 gm/ Sodium (Chloride) 50 mls @ 100 mls/hr IV Q8H [facility]; Protocol Last Infusion: 12/29/21 06:40 Dose: 0 mls/hr Documented By: Admin: 12/29/21 06:00 Dose: 100 mls/hr Documented By: Infusion: 12/28/21 22:03 Dose: 0 mls/hr Documented By: Admin: 12/28/21 21:19 Dose: 100 mls/hr Documented By: Infusion: 12/28/21 15:27 Dose: 0 mls/hr Documented By: Admin: 12/28/21 14:57 Dose: 100 mls/hr Documented By: Infusion: 12/28/21 06:57 Dose: 0 mls/hr Documented By: Admin: 12/28/21 05:13 Dose: 100 mls/hr Documented By: Infusion: 12/27/21 22:34 Dose: 0 mls/hr Documented By: Admin: 12/27/21 21:08 Dose: 50 mls/hr Documented By: Infusion: 12/27/21 14:34 Dose: 0 mls/hr Documented By: Admin: 12/27/21 14:04 Dose: 100 mls/hr Documented By: Infusion: 12/27/21 06:03 Dose: 0 mls/hr Documented By: Admin: 12/27/21 05:08 Dose: 100 mls/hr Documented By: Infusion: 12/26/21 23:35 Dose: 0 mls/hr Documented By: Admin: 12/26/21 22:20 Dose: 100 mls/hr Documented By: Infusion: 12/26/21 15:30 Dose: 0 mls/hr Documented By: Admin: 12/26/21 14:49 Dose: 100 mls/hr Documented By: Infusion: 12/26/21 05:57 Dose: 0 mls/hr Documented By: [email or web address] Admin: 12/26/21 05:22 Dose: 100 mls/hr Documented By: Infusion: 12/25/21 22:20 Dose: 0 mls/hr Documented By: Admin: 12/25/21 21:33 Dose: 100 mls/hr Documented By: Infusion: 12/25/21 14:24 Dose: 0 mls/hr Documented By: Admin: 12/25/21 13:32 Dose: 100 mls/hr Documented By: Infusion: 12/25/21 06:32 Dose: 0 mls/hr Documented By: Admin: 12/25/21 05:38 Dose: 100 mls/hr Documented By: Infusion: 12/24/21 21:45 Dose: 0 mls/hr Documented By: Admin: 12/24/21 21:12 Dose: 100 mls/hr Documented By: Infusion: 12/24/21 15:20 Dose: 0 mls/hr Documented By: Admin: 12/24/21 14:47 Dose: 100 mls/hr Documented By: Infusion: 12/24/21 05:59 Dose: 0 mls/hr Documented By: Admin: 12/24/21 05:19 Dose: 100 mls/hr Documented By: Infusion: 12/23/21 21:53 Dose: 0 mls/hr Documented By: Admin: 12/23/21 21:23 Dose: 100 mls/hr Documented By: Infusion: 12/23/21 15:58 Dose: 0 mls/hr Documented By: Admin: 12/23/21 15:20 Dose: 100 mls/hr Documented By: WALT Insulin Human Lispro (Insulin Lispro 1 Unit/0.01 Ml Unit) 0 unit SQ [facility] DA[facility]; Protocol Last Admin: 12/29/21 11:31 Dose: Not Given Documented By: Admin: 12/29/21 07:49 Dose: Not Given Documented By: Admin: 12/28/21 21:19 Dose: Not Given Documented By: Admin: 12/28/21 16:32 Dose: Not Given Documented By: [email or web address] Admin: 12/28/21 11:25 Dose: Not Given Documented By: Admin: 12/28/21 07:21 Dose: Not Given Documented By: Admin: 12/27/21 20:07 Dose: Not Given Documented By: Admin: 12/27/21 17:38 Dose: Not Given Documented By: GAUTAM Levothyroxine Sodium (Levothyroxine 100 Mcg Vial) 50 mcg IV QACOX MONETT Last Admin: 12/29/21 07:49 Dose: 50 mcg Documented By: Admin: 12/28/21 06:57 Dose: 50 mcg Documented By: Admin: 12/27/21 07:17 Dose: 50 mcg Documented By: Admin: 12/26/21 07:45 Dose: 50 mcg Documented By: Admin: 12/25/21 07:50 Dose: 50 mcg Documented By: Co-signed By: ALEXANDER Lidocaine (Lidocaine Patch) 1 patch TOPICAL DAILY@1000 [facility] Admin: 12/29/21 10:39 Dose: Not Given Documented By: Admin: 12/28/21 11:13 Dose: Not Given Documented By: Admin: 12/27/21 12:50 Dose: Not Given Documented By: Admin: 12/26/21 09:30 Dose: 1 patch Documented By: WALT Pantoprazole Sodium (Pantoprazole 40 Mg Vial) 40 mg IV BIDAC [facility] Admin: 12/29/21 07:49 Dose: 40 mg Documented By: Admin: 12/28/21 17:00 Dose: 40 mg Documented By: Admin: 12/28/21 06:57 Dose: 40 mg Documented By: Admin: 12/27/21 17:33 Dose: 40 mg Documented By: Admin: 12/27/21 07:17 Dose: 40 mg Documented By: Admin: 12/26/21 17:16 Dose: 40 mg Documented By: Admin: 12/26/21 07:45 Dose: 40 mg Documented By: Admin: 12/25/21 17:16 Dose: 40 mg Documented By: Admin: 12/25/21 07:49 Dose: 40 mg Documented By: Co-signed By: ALEXANDER Admin: 12/24/21 17:10 Dose: 40 mg Documented By: WLAT Potassium/Phosphorus/Sodium (Neutra Phos 1 Packet) 2 packet PO BID [facility] Last Admin: 12/29/21 08:01 Dose: 2 packet Documented By: Admin: 12/28/21 21:18 Dose: 2 packet Documented By: Admin: 12/28/21 08:47 Dose: 2 packet Documented By: Admin: 12/27/21 20:05 Dose: 2 packet Documented By: EUGENIO Tramadol HCl (Tramadol 50 Mg Tablet) 100 mg PO Q6HP PRN; Protocol PRN Reason: Pain Last Admin: 12/29/21 08:01 Dose: 100 mg Documented By: Admin: 12/28/21 21:19 Dose: 100 mg Documented By: Admin: 12/28/21 14:59 Dose: 100 mg Documented By: Admin: 12/28/21 08:55 Dose: 100 mg Documented By: Admin: 12/28/21 01:13 Dose: 100 mg Documented By: Admin: 12/27/21 17:48 Dose: 100 mg Documented By: GAUTAM Shift Summary 12/29/21 04:00 Shift Summary by Marietta Jaimes Primary Diagnosis: Colovaginal fistula; Appendicitis, Sigmoid Colostomy Registration Status: Date of Surgery (if applicable): 12/24/21 Pertinent Medical Dx/Issue(s): A-fib; CAD; Type 2 DM; full hysterectomy with hormone replacement therapy; diverticulitis- large intestine w/o perforation or abscess w/o bleeding (Acute); heartburn; Obesity; spinal stenosis Med management (antibiotics, diuretics, BP): IV Meropenem Skin/Wound Care: midline staple incision tegaderm/ross, LLQ ostomy - sloughing, RLQ LUKAS Vital Signs with Trends: VSS on RA Pain management (acute vs. chronic): c/o back spasms - toradol, flexeril, Tramadol PRN Lab/Rad (abnormal, trends): Neuro/Mental Status: AOx4; pleasant and cooperative Urinary Elimination Device: bedpan d/t back pain Urinary output greater than 30mL/hr? Yes Date of last BM: 12/29/21 brown liquid stool in colostomy Lines/Tubes: R wrist SL, LUKAS drain RLQ, LLQ ostomy Activity: refusing OOB d/t back pain Recommendations/questions for MD: Discharge Plan (needs, disposition, etc): Home Initialized on 12/29/21 04:00 - END OF NOTE
== END 2021-12-29 15:45 | disposition home health service (06) | DRG 330 ==
LOC: ED 23:16 → MEDSUR 12-20 03:15
PROVIDERS: ADMIT Family Medicine Adult Medicine; ATTEND Family Medicine Adult Medicine

== ENCOUNTER 2022-06-20 05:32 | Inpatient (IN) ==
--- NOTE | 2022-06-12 15:49 | XRay Report ---
INDICATION: pre surgery TECHNIQUE: PA and lateral upright chest x-ray COMPARISON: Previous examination dated 12/24/2021, 02/19/2011 FINDINGS: Lungs: Lungs are negative. No focal pulmonary parenchymal infiltrate or mass Heart, vascular: No significant cardiomegaly. Pulmonary vascularity is normal. No pulmonary edema or pulmonary congestion Mediastinum, radha: No mediastinal widening. No hilar mass Pleura:No pleural fluid. No pleural-based mass or calcification Thoracic spine, ribs: No thoracic compression fracture. Ribs are negative. No fracture. No lytic lesion IMPRESSION: 1. Negative PA and lateral chest x-ray 2. No interval change Interpreted and Authenticated by: Angel Bojorquez 06/12/22
[2022-06-12 17:59] LABS: Basophils # (Auto) 0.05 K/mcL (0.00-0.30); Basophils % (Auto) 0.6 % (0.0-2.0); Eosinophils # (Auto) 0.11 K/mcL (0.00-0.70); Eosinophils % (Auto) 1.4 % (0.0-7.0); Hemoglobin 11.9 g/dL (11.2-15.7); Lymphocytes # (Auto) 2.04 K/mcL (1.50-4.80); Lymphocytes % (Auto) 25.4 % (15.5-49.0); Mean Cell Volume 84.6 fL (80.0-100.0); Mean Corpuscular HGB Conc 31.3 g/dL (31.0-36.0); Mean Platelet Volume 9.4 fL (8.8-12.5); Monocytes # (Auto) 0.58 K/mcL (0.10-0.90); Monocytes % (Auto) 7.2 % (1.0-12.0); Neutrophils % (Auto) 64.3 % (38.0-78.0); Platelet Count 279 K/mcL (140-440); RBC 4.49 M/mcL (3.59-5.38); Red Cell Distribution Width 16.1 % (11.5-14.5)
[2022-06-12 18:28] LABS: ALT/SGPT 14 U/L (<40); AST/SGOT 16 U/L (<32); Albumin 4.3 gm/dL (3.2-5.2); Albumin/Globulin Ratio 1.5 (1.0-2.3); Alkaline Phosphatase 105 U/L (39-117); Bilirubin,Total 0.2 mg/dL (0.1-1.0); Blood Urea Nitrogen 12 mg/dL (8-23); Calcium 9.1 mg/dL (8.6-10.4); Carbon Dioxide 28 mmol/L (22-30); Chloride 100 mmol/L (96-108); Globulin 2.9 gm/dL (2.2-3.7); Glomerular Filtration Rate 87; Glucose 85 mg/dL (70-105)
[2022-06-12 18:46] LABS: INR 0.9 (0.9-1.1); Partial Thromboplastin Time 29.9 sec (20.0-37.0); Prothrombin Time 12.5 sec (11.9-14.5)
[2022-06-12 19:03] LABS: Estimated Average Glucose(eAG) 134 mg/dL; Hemoglobin A1C 6.3 % Hgb (4.0-6.0)
--- NOTE | 2022-06-14 13:24 | EKG ---
[facility] Test Date: 2022-06-12 Pat Name: Madeline Bocanegra Department: RT Room: Gender: Female [employer]ic: : [id number] Requested By: Toi Ceballos Order Number: [id number] Jason MD: Angel Levine M.D. Measurements Intervals [place] Rate: 77 P: -14 MS: 163 QRS: 10 QRSD: 77 T: 17 QT: 360 QTc: 409 Interpretive Statements Sinus rhythm Probable left ventricular hypertrophy Electronically Signed On 06-14-2022 13:24:00 PDT by Angel Levine M.D. /store/M0/[id number]
[2022-06-20] MEDS ORDERED: PIPERACILLIN SODIUM/TAZOBACTAM 3.375 GM in DEXTROSE 5% IN WATER 50 ML IV SCH (06:00)
[2022-06-20] MEDS ORDERED: SCOPOLAMINE 1 PATCH PATCH TOPICAL PRN (06:30)
[2022-06-20] MEDS ORDERED: IPRATROPIUM/ALBUTEROL 3 ML AMPUL.NEB NEB PRN ×2 (06:30→09:10)
[2022-06-20] MEDS ORDERED: ONDANSETRON 4 MG/2 ML VIAL ONE (07:30)
[2022-06-20] MEDS ORDERED: ePHEDrine 50 MG/5 ML SYRINGE (ANEST) IV ONE (07:30)
[2022-06-20] MEDS ORDERED: PHENYLephrine 1 MG/10 ML SYRINGE (ANEST) ONE (07:30)
[2022-06-20] MEDS ORDERED: ROCURONIUM 10 MG/ML ML IV ONE (07:30)
[2022-06-20] MEDS ORDERED: HYDROmorphone 1 MG/ML SYRINGE ONE (07:30)
[2022-06-20] MEDS ORDERED: fentaNYL 100 MCG/2 ML VIAL IV ONE (07:30)
[2022-06-20] MEDS ORDERED: MIDAZOLAM 2 MG/2 ML VIAL ONE (07:30)
[2022-06-20] MEDS ORDERED: LIDOCAINE HCL/PF 100 MG/5 ML SYRINGE IV ONE (07:30)
[2022-06-20] MEDS ORDERED: ROPIVACAINE HCL/PF 20 ML VIAL IJ ONE (07:30)
[2022-06-20] MEDS ORDERED: DEXAMETHASONE 10 MG/ML VIAL ONE (07:30)
[2022-06-20] MEDS ORDERED: SUGAMMADEX SODIUM 200 MG/2 ML VIAL IV ONE (07:30)
[2022-06-20] MEDS ORDERED: KETOROLAC 30 MG/ML VIAL ONE (07:30)
[2022-06-20] MEDS ORDERED: PROPOFOL 200 MG/20 ML VIAL IV ONE (07:30)
[2022-06-20] MEDS ORDERED: HYDROmorphone 0.5 MG/0.5 ML SYRINGE IV PRN (09:10)
[2022-06-20] MEDS ORDERED: ACETAMINOPHEN 1,000 MG/100 ML BAG IV ONE (09:10)
[2022-06-20] MEDS ORDERED: fentaNYL 100 MCG/2 ML VIAL IV PRN (09:10)
[2022-06-20] MEDS ORDERED: MEPERIDINE 25 MG/ML VIAL IV PRN (09:10)
[2022-06-20] MEDS ORDERED: ONDANSETRON 4 MG/2 ML VIAL IV PRN (09:10)
[2022-06-20] MEDS ORDERED: 0.9 % SODIUM CHLORIDE 250 ML IV SCH (09:15)
--- NOTE | 2022-06-20 11:24 | Brief Operative Note ---
Brief Operative Note Date of procedure: 06/20/22 Pre-op diagnosis: colostomy status Post-op diagnosis: other (colostomy status) Procedure: colostomy take down Grafts/Implants: No (colette drain x1) Anesthesia: GETA Findings: extensive pelvic and lower abdominal adhesions Complications: none Surgeon: Toi Ceballos Estimated blood loss (cc): 150 Specimens Removed/Pathology: other (stoma end) Condition: stable Disposition: PACU
[2022-06-20] MEDS ORDERED: DEXTROSE 50% 50 ML VIAL IV PRN (11:33)
[2022-06-20] MEDS ORDERED: DEXTROSE 31 GM ORAL.SUSP PO PRN (11:33)
[2022-06-20] MEDS: ACETAMINOPHEN 1,000 MG/100 ML BAG IV SCH ×3 (11:50→23:04)
[2022-06-20] MEDS: PIPERACILLIN SODIUM/TAZOBACTAM 3.375 GM in DEXTROSE 5% IN WATER 50 ML IV SCH ×3 (12:49→23:45)
[2022-06-20] MEDS: INSULIN LISPRO 1 UNIT/0.01 ML UNIT SQ SCH ×3 (12:55→23:17)
[2022-06-20] MEDS: HYDROmorphone 1 MG/ML SYRINGE IV PRN ×3 (15:41→23:15)
[2022-06-20] MEDS: LACTATED RINGERS 1,000 ML IV SCH ×2 (18:48→21:55)
[2022-06-20] MEDS: diphenhydrAMINE 50 MG/ML VIAL IV SCH (20:13)
[2022-06-20] MEDS: METOCLOPRAMIDE 10 MG/2 ML VIAL IV SCH ×2 (20:14→23:14)
[2022-06-21] MEDS: ACETAMINOPHEN 1,000 MG/100 ML BAG IV SCH ×3 (05:29→17:35)
[2022-06-21] MEDS: INSULIN LISPRO 1 UNIT/0.01 ML UNIT SQ SCH ×4 (05:33→23:44)
[2022-06-21] MEDS: HYDROmorphone 1 MG/ML SYRINGE IV PRN ×4 (05:37→21:28)
[2022-06-21] MEDS: METOCLOPRAMIDE 10 MG/2 ML VIAL IV SCH ×4 (05:40→23:44)
[2022-06-21] MEDS: PIPERACILLIN SODIUM/TAZOBACTAM 3.375 GM in DEXTROSE 5% IN WATER 50 ML IV SCH ×4 (06:04→23:45)
[2022-06-21] MEDS: LACTATED RINGERS 1,000 ML IV SCH ×2 (06:04→18:08)
[2022-06-21 06:41] LABS: Basophils # (Auto) 0.02 K/mcL (0.00-0.30); Basophils % (Auto) 0.1 % (0.0-2.0); Eosinophils # (Auto) 0 K/mcL (0.00-0.70); Eosinophils % (Auto) 0 % (0.0-7.0); Hematocrit 32.9 % (34.1-44.9); Hemoglobin 10.2 g/dL (11.2-15.7); Lymphocytes # (Auto) 0.66 K/mcL (1.50-4.80); Lymphocytes % (Auto) 4.7 % (15.5-49.0); Monocytes # (Auto) 0.97 K/mcL (0.10-0.90); Neutrophils % (Auto) 87.8 % (38.0-78.0); Platelet Count 235 K/mcL (140-440); RBC 3.78 M/mcL (3.59-5.38); Red Cell Distribution Width 16.2 % (11.5-14.5); WBC 13.9 K/mcL (4.5-11.0)
[2022-06-21 06:46] LABS: ALT/SGPT 49 U/L (<40); AST/SGOT 43 U/L (<32); Albumin 3.2 gm/dL (3.2-5.2); Albumin/Globulin Ratio 1.2 (1.0-2.3); Alkaline Phosphatase 140 U/L (39-117); Bilirubin,Direct < 0.2 mg/dL (0-0.3); Bilirubin,Total 0.4 mg/dL (0.1-1.0); Blood Urea Nitrogen 8 mg/dL (8-23); Calcium 8.6 mg/dL (8.6-10.4); Carbon Dioxide 25 mmol/L (22-30); Chloride 103 mmol/L (96-108); Globulin 2.6 gm/dL (2.2-3.7); Glomerular Filtration Rate 87; Glucose 136 mg/dL (70-105); Lactate Dehydrogenase 279 U/L (135-225); Phosphorous 3.7 mg/dL (2.5-4.5); Triglycerides 81 mg/dL (<150)
--- NOTE | 2022-06-21 16:45 | General Surgery Progress Note ---
SUBJECTIVE Subjective Patient information: Note initiated : 06/21/22 at 4:42 pm Service Date, if different from initiated Date: [] Patient: Madeline Bocanegra 71 y/o F admitted on 06/20/22 for Colostomy Takedown. Chief Complaint: [] Principal diagnosis: Postoperative colostomy takedown Interval history: Patient is doing well. She has no complaints. She denies nausea. She has not had any shortness of breath or chest discomfort. She denies passage of flatus. Her pain is well controlled Constitutional Vitals: Vital Signs Temp Pulse Resp BP Pulse Ox O2 Del Method O2 Flow Rate 98.4 F 68 14 101/49 96 Room Air 0 06/21/22 16:00 06/21/22 16:00 06/21/22 16:00 06/21/22 16:00 06/21/22 16:00 06/21/22 16:00 06/20/22 12:28 Period Temp Pulse Resp BP Sys/Crews Pulse Ox O2 Del Method O2 Flow Rate Last 24 Hr 97.2 F-98.9 F 68-86 12-14 101-128/49-87 92-96 Room Air-Room Air Intake and Output 06/21/22 06/21/22 06/21/22 03:59 11:59 19:59 Intake Total 350 1150 1150 Output Total 1045 Balance -695 1150 1150 Weight 234 lb 3.2 oz Patient Weight 06/22/22 03:59 Weight 234 lb 3.2 oz Intake & Output: Intake & Output 06/21/22 06/21/22 06/21/22 03:59 11:59 19:59 Intake Total 350 1150 1150 Output Total 1045 Balance -695 1150 1150 Weight 234 lb 3.2 oz Intake: IV 200 1150 1150 Lactated Ringers 1,000 ml @ 100 1000 1000 mls/hr IV .Q10H DAHIANA Rx#: [id number] Zosyn 3.375 gm In Dextrose 5% 100 50 50 in Water 50 ml @ 100 mls/hr IV Q6H DAHIANA Rx#:[id number] Oral 150 Output: Gastric Drainage 500 Left Nare 500 Drainage 70 Right Lower Abdomen 70 Urine Catheter Amount 475 Other: Urine Appearance Clear Uretheral (Van) Clear Clear Sediment Urine Color Yellow Uretheral (Van) Yellow Yellow Urine Odor Uretheral (Van) Normal Neck Neck exam: Present full ROM and normal inspection Respiratory Respiratory exam: Present normal respiratory exam and CTAB Cardiovascular Cardiovascular exam: Present normal rate and rhythm, RRR, +S1 and +S2 GI/Abdominal GI/Abdominal exam: Present normal bowel sounds and soft; Absent distended Additional comments: Incision and stoma site are unremarkable Extremities Exam Extremities exam: Present normal inspection and neurovascular intact Neurological Exam Neurological exam: Present alert and oriented X3; Absent motor sensory deficit Psychiatric Psychiatric exam: Present normal affect and normal mood A/P Assessment and plan (1) S/P colostomy takedown: Status: Acute (2) Acute diverticulitis of intestine: Status: Acute Plan Continue present therapy Discontinue Van catheter PT for ambulation Time Spent With Patient Time: Total time spent is greater than 50% in coordination of care (as documented) at patient's floor/unit and/or counseling patient:
[2022-06-21] MEDS: diphenhydrAMINE 50 MG/ML VIAL IV SCH (21:29)
[2022-06-22] MEDS: ACETAMINOPHEN 1,000 MG/100 ML BAG IV SCH ×5 (00:14→23:34)
[2022-06-22] MEDS: HYDROmorphone 1 MG/ML SYRINGE IV PRN ×7 (02:07→23:39)
[2022-06-22] MEDS: LACTATED RINGERS 1,000 ML IV SCH ×3 (04:42→23:35)
[2022-06-22] MEDS: METOCLOPRAMIDE 10 MG/2 ML VIAL IV SCH ×4 (05:36→23:35)
[2022-06-22] MEDS: PIPERACILLIN SODIUM/TAZOBACTAM 3.375 GM in DEXTROSE 5% IN WATER 50 ML IV SCH ×3 (05:36→18:00)
[2022-06-22] MEDS: INSULIN LISPRO 1 UNIT/0.01 ML UNIT SQ SCH ×4 (05:36→23:40)
[2022-06-22 06:17] LABS: Basophils # (Auto) 0.03 K/mcL (0.00-0.30); Basophils % (Auto) 0.3 % (0.0-2.0); Eosinophils # (Auto) 0.02 K/mcL (0.00-0.70); Eosinophils % (Auto) 0.2 % (0.0-7.0); Hematocrit 29.3 % (34.1-44.9); Hemoglobin 9.2 g/dL (11.2-15.7); Lymphocytes % (Auto) 10.2 % (15.5-49.0); Mean Cell Volume 85.4 fL (80.0-100.0); Mean Corpuscular HGB Conc 31.4 g/dL (31.0-36.0); Mean Platelet Volume 9.4 fL (8.8-12.5); Monocytes # (Auto) 0.96 K/mcL (0.10-0.90); Monocytes % (Auto) 8.2 % (1.0-12.0); Neutrophils % (Auto) 80.7 % (38.0-78.0); Platelet Count 232 K/mcL (140-440); RBC 3.43 M/mcL (3.59-5.38); Red Cell Distribution Width 16.5 % (11.5-14.5); WBC 11.8 K/mcL (4.5-11.0)
[2022-06-22 06:30] LABS: ALT/SGPT 31 U/L (<40); AST/SGOT 22 U/L (<32); Albumin 2.9 gm/dL (3.2-5.2); Alkaline Phosphatase 121 U/L (39-117); Bilirubin,Direct < 0.2 mg/dL (0-0.3); Bilirubin,Total 0.3 mg/dL (0.1-1.0); Blood Urea Nitrogen 9 mg/dL (8-23); Calcium 8.2 mg/dL (8.6-10.4); Carbon Dioxide 29 mmol/L (22-30); Chloride 103 mmol/L (96-108); Globulin 2.8 gm/dL (2.2-3.7); Glomerular Filtration Rate 87; Glucose 122 mg/dL (70-105); Lactate Dehydrogenase 180 U/L (135-225); Phosphorous 2.6 mg/dL (2.5-4.5); Triglycerides 79 mg/dL (<150); Uric Acid 3.7 mg/dL (2.5-8.0)
--- NOTE | 2022-06-22 13:52 | General Surgery Progress Note ---
SUBJECTIVE Subjective Patient information: Note initiated : 06/22/22 at 1:48 pm Service Date, if different from initiated Date: [] Patient: Madeline Bocanegra 71 y/o F admitted on 06/20/22 for Colostomy Takedown. Chief Complaint: [] Principal diagnosis: Postoperative colostomy takedown Interval history: Patient is doing well. She has no complaints. Her pain is controlled. She has been afebrile. Pelvic drain shows serosanguineous drainage. She denies nausea. She has not had flatus so for. White blood count 11.8, hemoglobin 9.2, hematocrit 29.3. Potassium BUN and creatinine are normal Constitutional Vitals: Vital Signs Temp Pulse Resp BP Pulse Ox O2 Del Method O2 Flow Rate 98.4 F 100 H 18 159/67 94 Room Air 0 06/22/22 12:00 06/22/22 12:00 06/22/22 12:00 06/22/22 12:00 06/22/22 12:00 06/22/22 12:00 06/20/22 12:28 Period Temp Pulse Resp BP Sys/Crews Pulse Ox O2 Del Method O2 Flow Rate Last 24 Hr 97.5 F-98.6 F 68-100 14-18 101-159/49-75 94-96 Room Air-Room Air Intake and Output 06/22/22 06/22/22 06/22/22 03:59 11:59 19:59 Intake Total 450 1150 510 Output Total 970 485 300 Balance -520 665 210 Weight 235 lb 11.2 oz Intake & Output: Intake & Output 06/22/22 06/22/22 06/22/22 03:59 11:59 19:59 Intake Total 450 1150 510 Output Total 970 485 300 Balance -520 665 210 Weight 235 lb 11.2 oz Intake: IV 150 1150 150 Lactated Ringers 1,000 ml @ 100 1000 mls/hr IV .Q10H DAHIANA Rx#: [id number] Zosyn 3.375 gm In Dextrose 5% 50 50 50 in Water 50 ml @ 100 mls/hr IV Q6H DAHIANA Rx#:[id number] Oral 300 360 Output: Gastric Drainage 400 100 Left Nare 400 100 Drainage 20 10 Right Lower Abdomen 20 10 Void Amount 550 375 300 Other: Urine Appearance Clear Clear Clear Urine Color Yellow Yellow Dark Yellow Urine Odor Normal Normal Normal Neck Neck exam: Present full ROM and normal inspection Respiratory Respiratory exam: Present normal respiratory exam and CTAB Cardiovascular Cardiovascular exam: Present normal rate and rhythm, RRR, +S1 and +S2 GI/Abdominal GI/Abdominal exam: Present normal bowel sounds and soft; Absent distended Additional comments: Incision and stoma site are unremarkable Extremities Exam Extremities exam: Present normal inspection and neurovascular intact Neurological Exam Neurological exam: Present alert and oriented X3; Absent motor sensory deficit Psychiatric Psychiatric exam: Present normal affect and normal mood A/P Assessment and plan (1) S/P colostomy takedown: Status: Acute (2) Gastroesophageal reflux: Status: Chronic Qualifiers: Esophagitis presence: esophagitis presence not specified Qualified Code(s): K21.9 - Gastro-esophageal reflux disease without esophagitis Plan Patient is doing well. We will continue present therapy . May potentially clamp nasogastric tube in the a.m. t Time Spent With Patient Time: Total time spent is greater than 50% in coordination of care (as documented) at patient's floor/unit and/or counseling patient:
[2022-06-22] MEDS: diphenhydrAMINE 50 MG/ML VIAL IV SCH (20:06)
[2022-06-23] MEDS: PIPERACILLIN SODIUM/TAZOBACTAM 3.375 GM in DEXTROSE 5% IN WATER 50 ML IV SCH ×4 (00:22→18:01)
[2022-06-23] MEDS: ACETAMINOPHEN 1,000 MG/100 ML BAG IV SCH ×4 (05:43→23:13)
[2022-06-23] MEDS: METOCLOPRAMIDE 10 MG/2 ML VIAL IV SCH ×4 (05:44→23:13)
[2022-06-23] MEDS: INSULIN LISPRO 1 UNIT/0.01 ML UNIT SQ SCH ×4 (05:44→23:25)
[2022-06-23] MEDS: HYDROmorphone 1 MG/ML SYRINGE IV PRN ×4 (05:44→18:55)
[2022-06-23 06:14] LABS: Basophils # (Auto) 0.05 K/mcL (0.00-0.30); Basophils % (Auto) 0.5 % (0.0-2.0); Eosinophils % (Auto) 0.9 % (0.0-7.0); Hematocrit 34.1 % (34.1-44.9); Hemoglobin 10.4 g/dL (11.2-15.7); Lymphocytes # (Auto) 1.55 K/mcL (1.50-4.80); Lymphocytes % (Auto) 14.1 % (15.5-49.0); Mean Cell Volume 87.2 fL (80.0-100.0); Mean Corpuscular HGB Conc 30.5 g/dL (31.0-36.0); Monocytes % (Auto) 5.4 % (1.0-12.0); Neutrophils % (Auto) 78.4 % (38.0-78.0); Platelet Count 288 K/mcL (140-440); RBC 3.91 M/mcL (3.59-5.38); Red Cell Distribution Width 16.1 % (11.5-14.5)
[2022-06-23 06:47] LABS: ALT/SGPT 29 U/L (<40); AST/SGOT 22 U/L (<32); Albumin 3.5 gm/dL (3.2-5.2); Albumin/Globulin Ratio 1.1 (1.0-2.3); Alkaline Phosphatase 147 U/L (39-117); Bilirubin,Direct < 0.2 mg/dL (0-0.3); Bilirubin,Total 0.3 mg/dL (0.1-1.0); Blood Urea Nitrogen 7 mg/dL (8-23); Calcium 9.2 mg/dL (8.6-10.4); Carbon Dioxide 30 mmol/L (22-30); Chloride 102 mmol/L (96-108); Globulin 3.2 gm/dL (2.2-3.7); Glomerular Filtration Rate 74; Glucose 101 mg/dL (70-105); Lactate Dehydrogenase 235 U/L (135-225); Phosphorous 2.7 mg/dL (2.5-4.5); Triglycerides 114 mg/dL (<150); Uric Acid 4.1 mg/dL (2.5-8.0)
[2022-06-23] MEDS: POTASSIUM CHLORIDE 40 MEQ in DEXTROSE 5% IN WATER 500 ML IV SCH ×2 (09:17→13:36)
--- NOTE | 2022-06-23 12:48 | General Surgery Progress Note ---
SUBJECTIVE Subjective Patient information: Note initiated : 06/23/22 at 12:43 pm Service Date, if different from initiated Date: [] Patient: Madeline Bocanegra 71 y/o F admitted on 06/20/22 for Colostomy Takedown. Chief Complaint: [] Principal diagnosis: Postoperative colostomy takedown Interval history: Patient continues to improve she has had flatus and has started passing liquid bowel movements. She denies any increased pain. LUKAS drainage is serous. White blood count 11, hemoglobin 10.4, hematocrit 34.1, BUN 7, creatinine 0.8, potassium 3.6 Constitutional Vitals: Vital Signs Temp Pulse Resp BP Pulse Ox O2 Del Method O2 Flow Rate 97.6 F 102 H 16 141/74 95 Room Air 0 06/23/22 12:29 06/23/22 12:29 06/23/22 04:00 06/23/22 12:29 06/23/22 12:29 06/23/22 12:29 06/20/22 12:28 Period Temp Pulse Resp BP Sys/Crews Pulse Ox O2 Del Method O2 Flow Rate Last 24 Hr 95.7 F-98.4 F 70-104 16-18 134-157/65-85 92-96 Room Air-Room Air Intake and Output 06/23/22 06/23/22 06/23/22 03:59 11:59 19:59 Intake Total 1750 600 100 Output Total 1150 1470 Balance 600 -870 100 Weight 236 lb 3.2 oz Intake & Output: Intake & Output 06/23/22 06/23/22 06/23/22 03:59 11:59 19:59 Intake Total 1750 600 100 Output Total 1150 1470 Balance 600 -870 100 Weight 236 lb 3.2 oz Intake: IV 1150 150 100 Lactated Ringers 1,000 ml @ 100 1000 mls/hr IV .Q10H DAHIANA Rx#: [id number] Zosyn 3.375 gm In Dextrose 5% 50 50 in Water 50 ml @ 100 mls/hr IV Q6H DAHIANA Rx#:[id number] Oral 600 450 Output: Gastric Drainage 600 Left Nare 600 Drainage 20 Right Lower Abdomen 20 Void Amount 1150 850 Other: Urine Appearance Clear Clear Urine Color Yellow Yellow Urine Odor Normal Stool Size Small Stool Color Brown Stool Consistency Liquid # Bowel Movements 1 Respiratory Respiratory exam: Present normal respiratory exam and CTAB Cardiovascular Cardiovascular exam: Present normal rate and rhythm, RRR, +S1 and +S2; Absent JVD GI/Abdominal GI/Abdominal exam: Present normal bowel sounds and soft; Absent distended or tenderness Additional comments: Incision looks good. Rectal Additional comments: Necrotic abscess cavity right medial buttock is significantly improved. It is beginning to contract and has more granulations. Extremities Exam Extremities exam: Present normal inspection and neurovascular intact A/P Assessment and plan (1) S/P colostomy takedown: Status: Acute (2) Diabetes mellitus type 2 in obese: Status: Chronic Plan Discontinue nasogastric tube Clear liquid diet Sepsis Sepsis Identified: No Time Spent With Patient Time: Total time spent is greater than 50% in coordination of care (as documented) at patient's floor/unit and/or counseling patient:
[2022-06-23] MEDS: LACTATED RINGERS 1,000 ML IV SCH ×2 (18:37→20:38)
[2022-06-23] MEDS: diphenhydrAMINE 50 MG/ML VIAL IV SCH (20:02)
[2022-06-24] MEDS: PIPERACILLIN SODIUM/TAZOBACTAM 3.375 GM in DEXTROSE 5% IN WATER 50 ML IV SCH ×5 (00:37→21:39)
[2022-06-24] MEDS: HYDROmorphone 1 MG/ML SYRINGE IV PRN ×3 (01:16→10:25)
[2022-06-24] MEDS: INSULIN LISPRO 1 UNIT/0.01 ML UNIT SQ SCH ×3 (05:07→18:06)
[2022-06-24] MEDS: ACETAMINOPHEN 1,000 MG/100 ML BAG IV SCH ×4 (05:07→21:40)
[2022-06-24] MEDS: METOCLOPRAMIDE 10 MG/2 ML VIAL IV SCH ×4 (05:07→21:41)
[2022-06-24 05:56] LABS: Basophils # (Auto) 0.06 K/mcL (0.00-0.30); Basophils % (Auto) 0.8 % (0.0-2.0); Eosinophils # (Auto) 0.37 K/mcL (0.00-0.70); Eosinophils % (Auto) 4.7 % (0.0-7.0); Hematocrit 30.4 % (34.1-44.9); Hemoglobin 9.5 g/dL (11.2-15.7); Lymphocytes # (Auto) 1.83 K/mcL (1.50-4.80); Lymphocytes % (Auto) 23.3 % (15.5-49.0); Mean Cell Volume 85.4 fL (80.0-100.0); Mean Corpuscular HGB Conc 31.3 g/dL (31.0-36.0); Mean Platelet Volume 8.8 fL (8.8-12.5); Monocytes # (Auto) 0.51 K/mcL (0.10-0.90); Monocytes % (Auto) 6.5 % (1.0-12.0); Neutrophils % (Auto) 63.6 % (38.0-78.0); Platelet Count 238 K/mcL (140-440); RBC 3.56 M/mcL (3.59-5.38); Red Cell Distribution Width 15.6 % (11.5-14.5); WBC 7.9 K/mcL (4.5-11.0)
[2022-06-24 06:33] LABS: ALT/SGPT 23 U/L (<40); AST/SGOT 22 U/L (<32); Albumin 2.8 gm/dL (3.2-5.2); Alkaline Phosphatase 138 U/L (39-117); Bilirubin,Direct < 0.2 mg/dL (0-0.3); Bilirubin,Total 0.3 mg/dL (0.1-1.0); Blood Urea Nitrogen 4 mg/dL (8-23); Calcium 8.3 mg/dL (8.6-10.4); Carbon Dioxide 28 mmol/L (22-30); Chloride 101 mmol/L (96-108); Globulin 2.9 gm/dL (2.2-3.7); Glomerular Filtration Rate 98; Glucose 95 mg/dL (70-105); Lactate Dehydrogenase 265 U/L (135-225); Triglycerides 127 mg/dL (<150); Uric Acid 3.1 mg/dL (2.5-8.0)
[2022-06-24] MEDS: LACTATED RINGERS 1,000 ML IV SCH ×2 (11:37→15:59)
--- NOTE | 2022-06-24 13:39 | General Surgery Progress Note ---
SUBJECTIVE Subjective Patient information: Note initiated : 06/24/22 at 1:33 pm Service Date, if different from initiated Date: [] Patient: Madeline Bocanegra 71 y/o F admitted on 06/20/22 for Colostomy Takedown. Chief Complaint: [] Principal diagnosis: Postoperative colostomy takedown Interval history: Patient is doing well. she is tolerating a regular diet.. she has had 3 regular bowel movements. Abdominal pain is controlled. White blood count 7.9, hemoglobin 9.5, hematocrit 30.4, BUN and creatinine are normal, potassium 3, phosphorus 2 Constitutional Vitals: Vital Signs Temp Pulse Resp BP Pulse Ox O2 Del Method O2 Flow Rate 98.7 F 87 18 148/68 95 Room Air 0 06/24/22 12:00 06/24/22 12:00 06/24/22 12:00 06/24/22 12:00 06/24/22 12:00 06/24/22 12:00 06/20/22 12:28 Period Temp Pulse Resp BP Sys/Crews Pulse Ox O2 Del Method O2 Flow Rate Last 24 Hr 97.5 F-98.7 F 84-115 16-18 128-154/61-80 94-96 Room Air-Room Air Intake and Output 06/24/22 06/24/22 06/24/22 03:59 11:59 19:59 Intake Total 650 1150 150 Output Total 1620 15 Balance -970 1135 150 Weight 235 lb 6.4 oz Intake & Output: Intake & Output 06/24/22 06/24/22 06/24/22 03:59 11:59 19:59 Intake Total 650 1150 150 Output Total 1620 15 Balance -970 1135 150 Weight 235 lb 6.4 oz Intake: IV 150 1150 150 Lactated Ringers 1,000 ml @ 100 1000 mls/hr IV .Q10H DAHIANA Rx#: [id number] Zosyn 3.375 gm In Dextrose 5% 50 50 50 in Water 50 ml @ 100 mls/hr IV Q6H DAHIANA Rx#:[id number] Oral 500 Output: Drainage 15 Right Lower Abdomen 15 Drainage 20 Right Lower Abdomen 20 Void Amount 1600 Other: Urine Appearance Clear Urine Color Yellow Stool Size Moderate Stool Color Brown Stool Consistency Liquid # Bowel Movements 1 Head Head exam: Present atraumatic, normal inspection and normocephalic Neck Neck exam: Present full ROM and normal inspection; Absent tenderness Respiratory Respiratory exam: Present normal respiratory exam and CTAB Cardiovascular Cardiovascular exam: Present normal rate and rhythm, RRR, +S1 and +S2; Absent g allop or JVD GI/Abdominal GI/Abdominal exam: Present normal bowel sounds, soft and tenderness (Mild tenderness); Absent distended Additional comments: Incision and old stoma site are healing nicely Extremities Exam Extremities exam: Present normal inspection and neurovascular intact Neurological Exam Neurological exam: Present alert, normal gait and oriented X3; Absent motor sensory deficit Psychiatric Psychiatric exam: Present normal affect and normal mood A/P Assessment and plan (1) S/P colostomy takedown: Status: Acute (2) Acute diverticulitis of intestine: Status: Acute Plan Potassium phosphate rider x2 Advance to regular diet Probable discharge tomorrow Sepsis Sepsis Identified: No Time Spent With Patient Time: Total time spent is greater than 50% in coordination of care (as documented) at patient's floor/unit and/or counseling patient:
[2022-06-24] MEDS: oxyCODONE IR 5 MG TABLET PO PRN ×2 (15:09→20:30)
[2022-06-24] MEDS: POTASSIUM PHOSPHATE 40 MEQ in DEXTROSE 5% IN WATER 500 ML IV SCH ×2 (15:58→21:40)
[2022-06-24] MEDS ORDERED: ACETAMINOPHEN 500 MG TABLET PO PRN (18:52)
[2022-06-24] MEDS ORDERED: NEUTRA PHOS 1 PACKET PO ONE (18:57)
[2022-06-24] MEDS: ACETAMINOPHEN 500 MG TABLET PO SCH (20:28)
[2022-06-24] MEDS: POTASSIUM CHLORIDE 20 MEQ TABLET PO SCH (20:28)
[2022-06-24] MEDS: AMOXICILLIN/POTASSIUM CLAV 875 MG TABLET PO SCH (20:32)
[2022-06-24] MEDS ORDERED: diphenhydrAMINE 25 MG CAPSULE PO SCH (21:00)
[2022-06-24] MEDS: METOPROLOL TARTRATE 25 MG TABLET PO SCH (21:27)
[2022-06-25] MEDS: POTASSIUM CHLORIDE 20 MEQ TABLET PO SCH (00:45)
[2022-06-25] MEDS: INSULIN LISPRO 1 UNIT/0.01 ML UNIT SQ SCH ×3 (00:49→12:28)
[2022-06-25] MEDS: METOCLOPRAMIDE 10 MG TABLET PO SCH ×3 (00:59→12:28)
[2022-06-25] MEDS: ACETAMINOPHEN 500 MG TABLET PO SCH ×3 (01:46→15:20)
[2022-06-25] MEDS: oxyCODONE IR 5 MG TABLET PO PRN ×3 (04:28→12:26)
[2022-06-25] MEDS: METOPROLOL TARTRATE 25 MG TABLET PO SCH (08:14)
[2022-06-25] MEDS: AMOXICILLIN/POTASSIUM CLAV 875 MG TABLET PO SCH (08:15)
--- NOTE | 2022-06-25 15:11 | Discharge Summary ---
Discharge Provider Provider IMPORTANT FOLLOW-UP INFORMATION FOR PCP: Patient information: Note initiated : 06/25/22 at 3:10 pm Service Date, if different from initiated Date: [] Patient: Madeline Bocanegra 71 y/o F admitted on 06/20/22 for Colostomy Takedown. Chief Complaint: [] Date of admission: 06/20/22 05:32 Discharge date: 06/25/22 Primary care physician: Angel Trejo DO Admitting clinician: Toi Ceballos Attending physician on admission: Toi Ceballos Attending physician on discharge: Toi Ceballos Discharging clinician: Toi Ceballos COURSE Hospital Course Hospital course: 79-year-old female with history of colostomy who was admitted for colostomy takedown. This was performed on 20 June 2022. She did well postoperatively and started passing flatus on 23 June 2022. She has had multiple bowel movements and has tolerated diet without difficulty. Her abdominal exam is benign and the pelvic fluid is serous. Patient has not had any problems with bowel movements and is tolerating diet without difficulty. Discharge diagnosis: Colostomy status; status post colostomy takedown Secondary discharge diagnosis: History of diverticulitis Reason for admission: Colostomy takedown Procedures: Colostomy takedown Pertinent studies/significant findings: None Time Spent with Patient Time attestation: Total time spent providing and/or coordinating discharge services: Time spent: Less than 30 minutes Physical Examination Vital Signs Vital signs: Temp Pulse Resp BP Pulse Ox O2 Del Method O2 Flow Rate 98.3 F 86 16 122/62 96 Room Air 0 06/25/22 07:35 06/25/22 07:35 06/25/22 07:35 06/25/22 07:35 06/25/22 07:35 06/25/22 07:35 06/20/22 12:28 General physical appearance General physical exam: well developed, well nourished, no distress and no pain Eyes Eye exam: PERRL and normal ocular movement ENT ENT exam: normal nares and normal mucosa Head Head exam IM: Present atraumatic, normal inspection and normocephalic Neck Neck exam: no masses, trachea midline, no lymphadenopathy and no venous distension Cardiovascular Cardiovascular exam IM: Present normal rate and rhythm, RRR, +S1 and +S2; Absent JVD Respiratory Respiratory exam: normal expansion, normal respiratory effort and clear to auscultation Abdomen Abdomen: Present non tender, bowel sounds (Normal active bowel sounds) and surgical scars (Midline incision and stoma site healing nicely) Integumentary Integumentary: Present no rash, no growths and no abnormal pigmentation Neurologic Neurologic: Present normal coordination and normal sensation Musculoskeletal Musculoskeletal: Present normal gait and normal posture Psychiatric Psychiatric: Present oriented to time, oriented to person, oriented to place, speech is normal and memory intact Discharge Plan Patient/Caregiver Discharge Instructions Activity: increase activity as tolerated Diet: Regular Diet Prescriptions: New oxycodone-acetaminophen [Endocet] 10-325 mg tablet 1 tab PO Q4H PRN (Reason: Pain) Qty: 40 0RF potassium chloride 20 mEq tablet extended release 20 meq PO BID Qty: 10 0RF Continued omeprazole 20 mg capsule,delayed release(DR/EC) 20 mg PO DAILY Qty: 90 3RF pioglitazone 30 mg tablet 30 mg PO QDAY Qty: 90 3RF metoprolol tartrate 25 mg tablet 25 mg PO BID Qty: 180 3RF Trulicity 1.5 mg/0.5 mL pen injector 1.5 mg SUBCUT WEEKLY 90 Days Qty: 2 4RF Patient Comments: SATURDAY metformin 500 mg tablet 500 mg PO BID Qty: 180 3RF (DME) Accu-Chek Kylie Plus test strp Strip See Dose Instructions .ROUTE .MEDSUPPLY Qty: 100 3RF Dose Instruction: As directed Rx Instructions: testing blood glucose once daily atorvastatin 40 mg tablet 40 mg PO HS Qty: 90 3RF peg 3350-electrolytes [Golytely] 236-22.74-6.74 -5.86 gram recon soln 240 ml PO Q10M Qty: 4000 0RF aspirin 325 mg tablet 325 mg PO QDAY tramadol 50 mg tablet 50 mg PO BID PRN (Reason: pain (scale score 7-10)) Qty: 60 0RF docusate sodium 100 mg capsule 100 mg PO BID PreserVision AREDS-2 2 cap PO DAILY Adults Multivitamin 1 tab PO DAILY polyethylene glycol 3350 [Miralax] 17 gram Powder In Packet 17 g PO DAILY flaxseed oil 1,000 mg Capsule 1,000 mg PO DAILY Rx Instructions: administer with a meal Fish Oil Extra Strength 435-880 mg Capsule 1,360 cap PO DAILY cyanocobalamin (vitamin B-12) [Vitamin B-12] 2,500 mcg Tablet, Sublingual 2,500 mcg SUBLINGUAL DAILY calcium carbonate 500 mg calcium (1,250 mg) Tablet 500 mg PO DAILY ascorbic acid (vitamin C) 500 mg Tablet 500 mg PO DAILY celecoxib 200 mg capsule 200 mg PO DAILY diltiazem HCl [Cartia XT] 180 mg capsule,extended release 24hr 180 mg PO DAILY magnesium oxide 400 mg tablet 400 mg PO DAILY methocarbamol 750 mg tablet 750 mg PO TIDP PRN (Reason: Muscle Spasm) levothyroxine 50 mcg tablet 50 mcg PO ACB loratadine 10 mg tablet 10 mg PO DAILYP PRN (Reason: allergy symptoms) Prescription drug monitoring program results: PDMP not reviewed Follow Up Plan Follow up with: Toi Ceballos MD [Physician] - 07/05/22 11:45 am Patient Disposition: Home, Self-Care Prognosis: Good Rehab Potential: Good I certify that the patient requires SNF services: No Overall status at discharge: patient is progressing back to baseline Pending Pending Pending: Resuscitation Status Full Code Diet Regular Diet Start Sun Jun 24 1340 Acetaminophen (Acetaminophen 500 Mg Tablet) 1,000 mg PO Q6H DAHIANA; Protocol Last Admin: 06/25/22 08:15 Dose: 1,000 mg Documented By: Admin: 06/25/22 01:46 Dose: 1,000 mg Documented By: Admin: 06/24/22 20:28 Dose: 1,000 mg Documented By: LRINGERING Amoxicillin/Clavulanate Potassium (Amoxicillin/Potassium Clav 875 Mg Tablet) 875 mg PO BIDCC DAHIANA; Protocol Last Admin: 06/25/22 08:15 Dose: 875 mg Documented By: Admin: 06/24/22 20:32 Dose: 875 mg Documented By: LRINGERING Diagnostic Test (Pha) (Accu-Chek 1 Each Strip) 1 each FS Q6 DAHIANA; Protocol Last Admin: 06/25/22 12:28 Dose: Not Given Documented By: Admin: 06/25/22 06:04 Dose: 1 each Documented By: Admin: 06/25/22 00:44 Dose: 1 each Documented By: Admin: 06/24/22 17:18 Dose: 1 each Documented By: Admin: 06/24/22 11:43 Dose: 1 each Documented By: Admin: 06/24/22 05:07 Dose: 1 each Documented By: Admin: 06/23/22 23:25 Dose: 1 each Documented By: Admin: 06/23/22 17:16 Dose: 1 each Documented By: Admin: 06/23/22 11:19 Dose: 1 each Documented By: Admin: 06/23/22 05:44 Dose: 1 each Documented By: Admin: 06/22/22 23:40 Dose: 1 each Documented By: Admin: 06/22/22 17:59 Dose: 1 each Documented By: Admin: 06/22/22 11:54 Dose: 1 each Documented By: Admin: 06/22/22 05:36 Dose: 1 each Documented By: Admin: 06/21/22 23:44 Dose: 1 each Documented By: Admin: 06/21/22 18:56 Dose: 1 each Documented By: Admin: 06/21/22 12:18 Dose: 1 each Documented By: Co-signed By: MP Admin: 06/21/22 05:31 Dose: 1 each Documented By: Admin: 06/20/22 23:17 Dose: 1 each Documented By: Admin: 06/20/22 17:40 Dose: 1 each Documented By: Admin: 06/20/22 11:53 Dose: 1 each Documented By: MGARRED Diphenhydramine HCl (Diphenhydramine 25 Mg Capsule) 50 mg PO QHS DAHIANA Last Admin: 06/24/22 20:35 Dose: Not Given Documented By: RENZO Insulin Human Lispro (Insulin Lispro 1 Unit/0.01 Ml Unit) 0 unit SQ Q6 DAHIANA; Protocol Last Admin: 06/25/22 12:28 Dose: Not Given Documented By: Admin: 06/25/22 06:05 Dose: Not Given Documented By: Admin: 06/25/22 00:49 Dose: 2 units Documented By: Admin: 06/24/22 18:06 Dose: Not Given Documented By: Admin: 06/24/22 12:04 Dose: Not Given Documented By: Admin: 06/24/22 05:07 Dose: Not Given Documented By: Admin: 06/23/22 23:25 Dose: Not Given Documented By: Admin: 06/23/22 17:26 Dose: Not Given Documented By: Admin: 06/23/22 11:19 Dose: Not Given Documented By: Admin: 06/23/22 05:44 Dose: Not Given Documented By: Admin: 06/22/22 23:40 Dose: Not Given Documented By: Admin: 06/22/22 18:29 Dose: Not Given Documented By: Admin: 06/22/22 13:04 Dose: Not Given Documented By: Admin: 06/22/22 05:36 Dose: Not Given Documented By: Admin: 06/21/22 23:44 Dose: Not Given Documented By: Admin: 06/21/22 18:55 Dose: Not Given Documented By: Admin: 06/21/22 12:34 Dose: Not Given Documented By: Admin: 06/21/22 05:33 Dose: 2 units Documented By: Admin: 06/20/22 23:17 Dose: Not Given Documented By: Admin: 06/20/22 17:50 Dose: 4 units Documented By: Admin: 06/20/22 12:55 Dose: Not Given Documented By: JAZZ Metoclopramide HCl (Metoclopramide 10 Mg Tablet) 10 mg PO Q6H [facility] Last Admin: 06/25/22 12:28 Dose: Not Given Documented By: Admin: 06/25/22 06:04 Dose: 10 mg Documented By: Admin: 06/25/22 00:59 Dose: 10 mg Documented By: RENZO Metoprolol Tartrate (Metoprolol Tartrate 25 Mg Tablet) 25 mg PO BID [facility] Last Admin: 06/25/22 08:14 Dose: 25 mg Documented By: Admin: 06/24/22 21:27 Dose: 25 mg Documented By: RENZO Oxycodone HCl (Oxycodone Hcl 5 Mg Tablet) 10 mg PO Q4HP PRN; Protocol PRN Reason: Per Pain Protocol Last Admin: 06/25/22 12:26 Dose: 10 mg Documented By: Admin: 06/25/22 08:14 Dose: 10 mg Documented By: Admin: 06/25/22 04:28 Dose: 10 mg Documented By: Admin: 06/24/22 20:30 Dose: 10 mg Documented By: Admin: 06/24/22 15:09 Dose: 10 mg Documented By: JAZZ Shift Summary 06/25/22 05:04 Shift Summary by Ellyn Guadarrama Primary Diagnosis: Colostomy Takedown Registration Status: IP Date of Surgery (if applicable): 06/20/2022- colostomy reversal Pertinent Medical Dx/Issue(s): hx A-fib; DM2 with insulin management; hx anemia; diverticula; dysmetabolic syndrome X; hypothyroidism; hyperlipidemia. Med management (antibiotics, diuretics, BP): Accu checks Q6 hrs with s/s insulin management; Q6 hrs PO Kdur and PO Reglan Skin/Wound Care: Midline incision with 3 Lap sites dressings are c/d/i; LUKAS drain output: 45 mls serosanguineous fluid. Vital Signs with Trends: VSS on RA Pain management (acute vs. chronic): Acute Abd pain/chronic back and shoulder pain. Oxy x2; scheduled Tylenol Lab/Rad (abnormals, trends): 06/24- K: 3.0; Hgb: 9.5; Hct: 30.4; Creat: 0.5; BUN: 4; Ca: 8.3 Neuro/Mental Status: Alert and oriented x4; Pleasant and cooperative Urinary Elimination Device: BR Urinary output greater than 30mL/hr? Yes Date of last BM: small loose stool x2 Lines/Tubes: IV inadvertently d/c and unable to start new IV so med orders were switched over to PO Activity: Up ad joe with FWW in room Recommendations/questions for MD: N/A Discharge Plan (needs, disposition, etc): Return home when medically cleared Initialized on 06/25/22 05:04 - END OF NOTE
--- NOTE | 2022-06-27 13:03 | Operative Note ---
DATE OF OPERATION: 06/20/2022 PREOPERATIVE DIAGNOSIS: Colostomy status. POSTOPERATIVE DIAGNOSIS: Colostomy status. PROCEDURE: Colostomy takedown. SURGEON: Toi Ceballos M.D. FINDINGS: Extensive pelvic and lower abdominal adhesions. DESCRIPTION OF PROCEDURE: Under general anesthesia, the patient's abdomen was prepped and draped in a sterile field. A stoma was closed with running 2-0 silk pre prep. It was also prepped and draped. The abdominal wall was covered with a Vi-Drape. Midline incision was made. The fascia was opened. There were extensive pelvic and lower abdominal adhesions, which were taken down using Metzenbaum scissors. Dissection was continued into the pelvis until the rectal stump was identified. The rectal stump was soft and pliable and was felt to be adequate for reanastomosis. It was dissected until I had clear margins circumferentially. Next, adhesions in the left lower quadrant were dissected. The stoma was excised from the skin and was then circumferentially dissected down to the fascia. It was then from the fascia and delivered into the abdomen. The distal end was somewhat stenotic, so it was resected. It easily reached the pelvis. The superior margin of the rectal stump was excised and it had excellent vascularity. The end of the descending colon was sutured to the rectum in two layers. This was performed end-to-end. Posterior wall was sutured with 2-0 Prolene. The anterior wall was sutured circumferentially using running locking 2-0 Vicryl. Anterior wall was reinforced with running 2-0 Prolene. It was a very loose anastomosis without any tension. It was widely patent by palpation. Irrigation was carried out. A Mendoza drain was placed in the pelvis below the anastomosis. It was brought out through a separate stab incision. The fascia of the stoma site was closed using running locking #1 Prolene. The midline fascia was closed with running #1 Prolene. Subcutaneous tissue was irrigated and closed with 2-0 Vicryl. Skin was closed with ross. The subcutaneous fat in the stoma site was closed with 2-0 Monocryl. Skin was closed with ross. The patient tolerated the procedure well. The drain was secured with 2-0 nylon. Tegaderm dressings were placed. The patient tolerated the procedure well. She was awakened, transferred to a bed, and taken to the postanesthetic care unit in satisfactory condition. LCS:galileo Job ID: [id number] Doc ID: [id number] Toi Ceballos M.D.
== END 2022-06-25 16:25 | disposition home or self-care (01) | DRG 346 ==
LOC: MEDSUR 05:32 → EDSTATUS 07:30
PROVIDERS: ADMIT Family Medicine Adult Medicine; ATTEND Family Medicine Adult Medicine